=== PATIENT | male | born 1965 | race Caucasian/White ===

== ENCOUNTER 2017-06-10 14:37 | Inpatient (IN) | payer OTHER ==
[2017-06-10 18:47] VITALS: BMI 21.7
--- NOTE | 2017-06-10 21:00 | HP ---
CIWA Score - CIWA Score Nausea/Vomitin-Mild Nausea/No Vomiting Muscle Tremors: 2 Anxiety: 4-Mod. Anxious/Guarded Agitation: 4-Moderately Restless Paroxysmal Sweats: 2 Orientation: 0-Oriented Tacttile Disturbances: 0-None Auditory Disturbances: 0-None Visual Disturbances: 0-None Headache: 0-None Present CIWA-Ar Total Score: 13 Admission ROS S - HPI Chief Complaint: " I ma here for detox" Allergies/Adverse Reactions: Allergies Allergy/AdvReac Type Severity Reaction Status Date / Time hydromorphone [From Dilaudid] Allergy Verified 06/10/17 21:09 Penicillins AdvReac Verified 06/10/17 21:09 History of Present Illness: 51 yo male with hx of nicotine, alcohol and marijuana dependence is here is seeking detox. PMHX: RA, sciatica and herniated disc, anxiety, depression. Denies suicidal / homicidal ideation or suicide attempts in the past. Last detox 20 years ago., Longest period of sobriety three weeks. Denies hx of seizures, hx of blackouts last episode 4 months ago . Exam Limitations: No Limitations - Ebola screening Have you traveled outside of the country in the last 21 days: No Have you had contact with anyone from an Ebola affected area: No Have you been sick,other than usual withdrawal symptoms: No Do you have a fever: No - Review of Systems Constitutional: Chills, Changes in sleep EENT: reports: No Symptoms Reported Respiratory: reports: No Symptoms reported GI: reports: Nausea, Poor Fluid Intake, Abdominal cramping : reports: No Symptoms Reported Musculoskeletal: reports: Back Pain Integumentary: reports: No Symptoms Reported Neuro: reports: No Symptoms reported Endocrine: reports: No Symptoms Reported Hematology: reports: No Symptoms Reported Psychiatric: reports: Orientated x3, Anxious Other Systems: Reviewed and Negative Patient History - Patient Medical History Hx Anemia: No Hx Asthma: No Hx Chronic Obstructive Pulmonary Disease (COPD): No Hx Cancer: No Hx Cardiac Disorders: No Hx Congestive Heart Failure: No Hx Hypertension: No Hx Hypercholesterolemia: No Hx Pacemaker: No HX Cerebrovascular Accident: No Hx Seizures: No Hx Dementia: No Hx Diabetes: No (GERD ) Hx Liver Disease: No Hx Genitourinary Disorders: No Hx Sexually Transmitted Disorders: No Hx Renal Disease (ESRD): No Hx Thyroid Disease: No Hx Human Immunodeficiency Virus (HIV): No (Last tested 2016) Hx Hepatitis C: No Hx Depression: Yes Hx Suicide Attempt: No Hx Bipolar Disorder: No Hx Schizophrenia: No - Patient Surgical History Past Surgical History: Yes Hx Neurologic Surgery: No Hx Cataract Extraction: No Hx Cardiac Surgery: No Hx Lung Surgery: No Hx Breast Surgery: No Hx Breast Biopsy: No Hx Abdominal Surgery: Yes (abdominal hernia 26 years ago ) Hx Appendectomy: No Hx Cholecystectomy: No Hx Genitourinary Surgery: No Hx Orthopedic Surgery: Yes (skull fracture repair 1 year agho ) Hx Hysterectomy: No Anesthesia Reaction: No - PPD History Previous Implant?: No Documented Results: Negative w/o proof Implanted On Prior R Admission?: No PPD to be Administered?: Yes - Reproductive History Patient is a Female of Child Bearing Age (11 -55 yrs old): No - Smoking Cessation Smoking history: Current every day smoker Have you smoked in the past 12 months: Yes Aproximately how many cigarettes per day: 8 Hx Chewing Tobacco Use: No Initiated information on smoking cessation: Yes 'Breaking Loose' booklet given: 06/10/17 - Substance & Tx. History Hx Alcohol Use: Yes Hx Substance Use: Yes Substance Use Type: Alcohol, Marijuana Hx Substance Use Treatment: Yes ([facility] 20 years ago ) - Substances Abused Alcohol Route: Oral Frequency: Daily Amount used: 1 pint vodka Age of first use: 20 Date of Last Use: 06/10/17 Marijuana/Hashish Route: Smoking Frequency: 1-2 times per week Amount used: $5 Age of first use: 20 Date of Last Use: 06/06/17 Family Disease History - Family Disease History Family Disease History: Diabetes: Mother (alive, multiple myeloma, gout, HTN ), Other: Father (, Crack Overdose), Mother Admission Physical Exam S - Vital Signs Vital Signs: Vital Signs - 24 hr 06/10/17 18:45 Temperature 96.1 F L Pulse Rate 85 Respiratory 18 Rate Blood Pressure 121/80 - Physical General Appearance: Yes: Disheveled, Thin, Irritable, Anxious, Other (pacing) HEENTM: Yes: EOMI, Hearing grossly Normal, Normal ENT Inspection, Normocephalic , Normal Voice, Pharynx Normal, Tm's normal, Other (poor dentition, missint teeth) Respiratory: Yes: Chest Non-Tender, Lungs Clear, Normal Breath Sounds, No Respiratory Distress, No Accessory Muscle Use Neck: Yes: No masses,lesions,Nodules, Trachea in good position Breast: Yes: Breast Exam Deferred Cardiology: Yes: Regular Rhythm, Regular Rate Abdominal: Yes: Normal Bowel Sounds, Non Tender, Flat, Soft Back: Yes: Normal Inspection Musculoskeletal: Yes: full range of Motion, Gait Steady, Pelvis Stable, Back pain Extremities: Yes: Normal Capillary Refill, Normal Inspection, Normal Range of Motion, Non-Tender 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: 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 NML intact, Fully Oriented, Alert, Motor Strength 5/5, Depressed Affect Integumentary: Yes: Normal Color, Warm, Moist Lymphatic: Yes: Within Normal Limits - Diagnostic (1) Alcohol dependence with withdrawal Current Visit: Yes Status: Acute Qualifiers: Complication of substance-induced condition: uncomplicated Qualified Code(s ): F10.230 - Alcohol dependence with withdrawal, uncomplicated (2) Anxious mood Current Visit: Yes Status: Acute (3) Marijuana dependence Current Visit: Yes Status: Acute Cleared for Admission [facility] - Detox or Rehab [facility] Level of Care: Medically Managed Detox Regimen/Protocol: Librium [facility] Breath Alcohol Content Breath Alcohol Content: 0.245 Urine Drug Screen - Results Drug Screen Negative: No Urine Drug Screen Results: THC-Marijuana
[2017-06-10] MEDS ORDERED: chlordiazePOXIDE HCL 25 MG CAPSULE PO ONE (21:09)
[2017-06-10] MEDS ORDERED: chlordiazePOXIDE HCL 25 MG CAPSULE PO PRN (21:09)
[2017-06-10] MEDS ORDERED: guaiFENesin/D-METHORPHAN HB 10 ML UNIT-DOSE CUPS PO PRN (21:09)
[2017-06-10] MEDS ORDERED: ACETAMINOPHEN 325 MG TABLET (FP) PO PRN (21:09)
[2017-06-10] MEDS ORDERED: MENTHOL/PHENOL 1 EACH UD MM PRN (21:09)
[2017-06-10] MEDS ORDERED: MAGNESIUM CITRATE 300 ML BOTTLE PO PRN (21:09)
[2017-06-10] MEDS ORDERED: LOPERAMIDE HCL 2 MG CAPSULE PO PRN (21:09)
[2017-06-10] MEDS ORDERED: MAG HYDROX/AL HYDROX/SIMETH 30 ML UNIT-DOSE CUP PO PRN (21:09)
[2017-06-10] MEDS ORDERED: hydrOXYzine PAMOATE 50 MG CAPSULE (FP) PO PRN (21:09)
[2017-06-10] MEDS ORDERED: NICOTINE POLACRILEX 2 MG GUM BC PRN (21:09)
[2017-06-10] MEDS ORDERED: P-EPHED 60MG/TRIPROLIDI 2.5MG TABLET PO PRN (21:09)
[2017-06-10] MEDS ORDERED: MAGNESIUM HYDROX 2400MG/30ML ORAL SUSPENSION 30 ML CUP PO PRN (21:09)
[2017-06-10] MEDS ORDERED: MELATONIN 5 MG TABLETS PO PRN (22:00)
[2017-06-10] MEDS: chlordiazePOXIDE HCL 25 MG CAPSULE PO SCH (23:05)
[2017-06-10] MEDS: THIAMINE HCL 100 MG TABLET (FP) PO SCH (23:05)
[2017-06-11 00:31] LABS: URINE APPEARANCE CLEAR; URINE BILIRUBIN NEGATIVE (<2.0 mg/dL); URINE COLOR LTYELLOW; URINE GLUCOSE (UA) NEGATIVE (NEGATIVE); URINE KETONE NEGATIVE (NEGATIVE); URINE LEUK ESTERASE NEGATIVE (NEGATIVE); URINE NITRITE NEGATIVE (NEGATIVE); URINE PROTEIN NEGATIVE (NEGATIVE)
[2017-06-11] MEDS: chlordiazePOXIDE HCL 25 MG CAPSULE PO SCH ×4 (05:20→22:13)
[2017-06-11] MEDS: IBUPROFEN 400 MG TABLET (FP) PO PRN (06:01)
[2017-06-11 10:14] LABS: HEMATOCRIT 40.4 % (35.4-49); HEMOGLOBIN 13.8 GM/dL (11.7-16.9); MCHC 34.1 g/dl (32.0-35.9); MEAN CELL VOLUME 96.9 fl (80-96); MEAN PLT VOLUME 8.2 fl (7.5-11.1); PLATELET COUNT 281 K/MM3 (134-434); RBC 4.17 M/mm3 (4.00-5.60); RDW 15.1 % (11.9-15.9); WHITE BLOOD COUNT 4.7 K/mm3 (4.0-10.0)
[2017-06-11 10:25] LABS: ALBUMIN 3.6 g/dl (3.4-5.0); ANION GAP 6 (8-16); CALCIUM 8.7 mg/dL (8.5-10.1); CHLORIDE 106 mmol/L (98-107); CO2 30 mmol/L (21-32); POTASSIUM 4.4 mmol/L (3.5-5.1); SODIUM 142 mmol/L (136-145)
[2017-06-11 10:30] LABS: ALK PHOS 114 U/L (45-117); BILIRUBIN,TOTAL 0.4 mg/dL (0.2-1.0); BLOOD UREA NITROGEN 12 mg/dL (7-18); CREATININE 0.9 mg/dL (0.7-1.3); GLUCOSE,RANDOM 87 mg/dL (74-106); SGOT/AST 43 U/L (15-37); SGPT/ALT 24 U/L (12-78); TOT PROT 7.1 g/dl (6.4-8.2)
[2017-06-11] MEDS: PRENATAL VITAMINS W/ FOLIC ACID TABLET (FP) PO SCH (10:30)
[2017-06-11] MEDS: NICOTINE 14 MG/24 HOURS TOPICAL PATCH TD SCH (10:30)
[2017-06-11] MEDS ORDERED: PNEUMOCOCCAL 23 VACCINE 0.5 ML VIAL IM ONE (12:00)
[2017-06-11] MEDS ORDERED: FLU VACCINE QUAD 60 MCG/0.5 ML (MDV 17-18) IM ONE (12:00)
[2017-06-11] MEDS ORDERED: PNEUMOC 13-VAL CONJ-DIP CRM/PF 0.5 ML DISP.SYRIN IM ONE (12:00)
[2017-06-11 12:16] LABS: RPR REACTIVE 1:4 (NONREACTIVE)
--- NOTE | 2017-06-11 13:13 | PN ---
[facility] CIWA - CIWA Score Nausea/Vomitin-No Nausea/No Vomiting Muscle Tremors: 4-Moderate,w/Arms Extend Anxiety: 4-Mod. Anxious/Guarded Agitation: 4-Moderately Restless Paroxysmal Sweats: 1-Minimal Palms Moist Orientation: 0-Oriented Tacttile Disturbances: 3-Moderate Itch/Numb/Burn Auditory Disturbances: 0-None Visual Disturbances: 0-None Headache: 0-None Present CIWA-Ar Total Score: 16 BHS Progress Note (SOAP) Subjective: ANXIETY,SWEATS,TREMORS,FATIGUE. Objective: 06/11/17 13:12 Vital Signs Temperature 96.0 F L 06/11/17 09:10 Pulse Rate 75 06/11/17 12:30 Respiratory Rate 18 06/11/17 12:30 Blood Pressure 120/79 06/11/17 09:10 O2 Sat by Pulse Oximetry (%) Laboratory Last Values WBC 4.7 K/mm3 (4.0-10.0) 06/11/17 08:30 RBC 4.17 M/mm3 (4.00-5.60) 06/11/17 08:30 Hgb 13.8 GM/dL (11.7-16.9) 06/11/17 08:30 Hct 40.4 % (35.4-49) 06/11/17 08:30 MCV 96.9 fl (80-96) H 06/11/17 08:30 MCH 33.0 pg (25.7-33.7) 06/11/17 08:30 MCHC 34.1 g/dl (32.0-35.9) 06/11/17 08:30 RDW 15.1 % (11.9-15.9) 06/11/17 08:30 Plt Count 281 K/MM3 (134-434) 06/11/17 08:30 MPV 8.2 fl (7.5-11.1) 06/11/17 08:30 Sodium 142 mmol/L (136-145) 06/11/17 08:30 Potassium 4.4 mmol/L (3.5-5.1) 06/11/17 08:30 Chloride 106 mmol/L (98-107) 06/11/17 08:30 Carbon Dioxide 30 mmol/L (21-32) 06/11/17 08:30 Anion Gap 6 (8-16) L 06/11/17 08:30 BUN 12 mg/dL (7-18) 06/11/17 08:30 Creatinine 0.9 mg/dL (0.7-1.3) 06/11/17 08:30 Creat Clearance w eGFR > 60 (>60) 06/11/17 08:30 Random Glucose 87 mg/dL (74-106) 06/11/17 08:30 Calcium 8.7 mg/dL (8.5-10.1) 06/11/17 08:30 Total Bilirubin 0.4 mg/dL (0.2-1.0) 06/11/17 08:30 AST 43 U/L (15-37) H 06/11/17 08:30 ALT 24 U/L (12-78) 06/11/17 08:30 Alkaline Phosphatase 114 U/L (45-117) 06/11/17 08:30 Total Protein 7.1 g/dl (6.4-8.2) 06/11/17 08:30 Albumin 3.6 g/dl (3.4-5.0) 06/11/17 08:30 Urine Color Ltyellow 06/10/17 00:00 Urine Appearance Clear 06/10/17 00:00 Urine pH 6.0 (5.0-8.0) 06/10/17 00:00 Ur Specific [place] 1.009 (1.001-1.035) 06/10/17 00:00 Urine Protein Negative (NEGATIVE) 06/10/17 00:00 Urine Glucose (UA) Negative (NEGATIVE) 06/10/17 00:00 Urine Ketones Negative (NEGATIVE) 06/10/17 00:00 Urine Blood Negative (NEGATIVE) 06/10/17 00:00 Urine Nitrite Negative (NEGATIVE) 06/10/17 00:00 Urine Bilirubin Negative (<2.0 mg/dL) 06/10/17 00:00 Urine Urobilinogen 2.0 mg/dL (0.2-1.0) 06/10/17 00:00 Ur Leukocyte Esterase Negative (NEGATIVE) 06/10/17 00:00 RPR Titer Reactive 1:4 (NONREACTIVE) H 06/11/17 08:30 HIV 1&2 Antibody Screen Negative 06/11/17 08:30 HIV P24 Antigen Negative 06/11/17 08:30 MHA PENDING Assessment: 06/11/17 13:13 WITHDRAWAL SX Plan: CONTINUE DETOX
[2017-06-11 15:16] LABS: TREPONEMA ANTIBODY REACTIVE (NONREACTIVE)
--- NOTE | 2017-06-11 15:42 | CONSULT ---
[facility] Psychiatric Consult - Data Date of interview: 06/11/17 Admission source: [facility] Identifying data: First admission to [facility] for this 51 y/o - Citizen Of [place] male seeking detox treatment on for alcohol and cannabis dependence.Patient is single,a father of five,domiciled and reportedly self- employed. Substance Abuse History: Confirmed by patient in this session.Details in current [facility] report as follows : Smoking history: Current every day smoker. Have you smoked in the past 12 months: Yes. Aproximately how many cigarettes per day: 8. Hx Chewing Tobacco Use: No. Initiated information on smoking cessation: Yes. 'Breaking Loose' booklet given: 06/10/17. - Substance & Tx. History. Hx Alcohol Use: Yes. Hx Substance Use: Yes. Substance Use Type: Alcohol, Marijuana. Hx Substance Use Treatment: Yes ([facility] Geoffrey 20 years ago ) . - Substances Abused. Alcohol. Route: Oral. Frequency: Daily. Amount used: 1 pint vodka. Age of first use: 20. Date of Last Use: 06/10/17. Marijuana/Hashish. Route: Smoking. Frequency: 1-2 times per week. Amount used : $5. Age of first use: 20. Date of Last Use: 06/06/17 Medical History: GERD,herniated discs (lumbar spine),sciatica (right leg), rheumatoid arthritis,recent history of fracture of skull (surgery) an a distant antecedent of abdominal herniorraphy. Psychiatric History: Patient admits to a history of one psychiatric hospitalization at a facility in [facility] (2013).Name of institution not recalled.Mr Hernandez indicates that he was diagniosed with MDD and Anxiety Disorder.At the time, he was prescribed remeron and sertraline.Last taken in 2013.Patient declares that he dropped out of OPD care promptly after discharge from the hospital.Has been lost to follow up for several years.Patient denies history of sucide attempts. Physical/Sexual Abuse/Trauma History: Patient denies. Additional Comment: Urine Drug Screen Results: THC-Marijuana.Noted. Mental Status Exam - Mental Status Exam Alert and Oriented to: Time, Place, Person Cognitive Function: Good Patient Appearance: Well Groomed Mood: Nervous, Withdrawn Affect: Normal Range Patient Behavior: Fatigued, Appropriate, Cooperative Speech Pattern: Clear Voice Loudness: Normal Thought Process: Intact, Goal Oriented Thought Disorder: Not Present Hallucinations: Denies Suicidal Ideation: Denies Homicidal Ideation: Denies Insight/Judgement: Poor Sleep: Poorly, Difficulty falling asleep Appetite: Good Muscle strength/Tone: Normal Gait/Station: Normal Psychiatric Findings - Problem List ([place] 1, 2,3) (1) Alcohol dependence with withdrawal Current Visit: Yes Status: Acute Qualifiers: Complication of substance-induced condition: uncomplicated Qualified Code(s ): F10.230 - Alcohol dependence with withdrawal, uncomplicated (2) Marijuana dependence Current Visit: Yes Status: Acute (3) Nicotine dependence Current Visit: Yes Status: Acute Qualifiers: Nicotine product type: cigarettes Substance use status: in withdrawal Qualified Code(s): F17.213 - Nicotine dependence, cigarettes, with withdrawal (4) Substance induced mood disorder Current Visit: Yes Status: Acute (5) Insomnia Current Visit: Yes Status: Acute - Initial Treatment Plan Initial Treatment Plan: Psychoeducation.Sleep hygiene.Detoxification in progress.Medication : remeron 15 mg po hs.Side effects/benefits discussed with the patient.Will not restart sertraline at this time.Patient is in agreement with this plan of care.Observation.
--- NOTE | 2017-06-11 16:58 | EKG ---
Test Reason : Blood Pressure : / mmHG Vent. Rate : 070 BPM Atrial Rate : 070 BPM P-R Int : 142 ms QRS Dur : 102 ms QT Int : 406 ms P-R-T Axes : 086 055 021 degrees QTc Int : 438 ms NORMAL SINUS RHYTHM NORMAL ECG NO PREVIOUS ECGS AVAILABLE Confirmed by MD Ella, Onel ([id number]) on 06/11/2017 4:58:20 PM Referred By: Confirmed By:Onel Jaramillo MD
[2017-06-11] MEDS: DOXYCYCLINE HYCLATE 100 MG TABLET PO SCH (17:46)
[2017-06-11] MEDS: MIRTAZAPINE 15 MG TABLET (FP) PO SCH (22:13)
[2017-06-11] MEDS: THIAMINE HCL 100 MG TABLET (FP) PO SCH (22:13)
[2017-06-12] MEDS: chlordiazePOXIDE HCL 25 MG CAPSULE PO SCH ×3 (05:42→18:14)
[2017-06-12] MEDS: PRENATAL VITAMINS W/ FOLIC ACID TABLET (FP) PO SCH (10:35)
[2017-06-12] MEDS: NICOTINE 14 MG/24 HOURS TOPICAL PATCH TD SCH (10:35)
[2017-06-12] MEDS: DOXYCYCLINE HYCLATE 100 MG TABLET PO SCH ×2 (10:35→18:14)
--- NOTE | 2017-06-12 12:53 | PN ---
[facility] CIWA - CIWA Score Nausea/Vomitin-No Nausea/No Vomiting Muscle Tremors: 4-Moderate,w/Arms Extend Anxiety: 4-Mod. Anxious/Guarded Agitation: 4-Moderately Restless Paroxysmal Sweats: 1-Minimal Palms Moist Orientation: 0-Oriented Tacttile Disturbances: 0-None Auditory Disturbances: 0-None Visual Disturbances: 0-None Headache: 0-None Present CIWA-Ar Total Score: 13 S Progress Note (SOAP) Subjective: ANXIETY, SWEATS,HEADACHE,FATIGUE. Objective: 06/12/17 13:11 Vital Signs Temperature 96.1 F L 06/12/17 11:15 Pulse Rate 78 06/12/17 11:15 Respiratory Rate 20 06/12/17 11:15 Blood Pressure 132/89 06/12/17 11:15 O2 Sat by Pulse Oximetry (%) Laboratory Last Values WBC 4.7 K/mm3 (4.0-10.0) 06/11/17 08:30 RBC 4.17 M/mm3 (4.00-5.60) 06/11/17 08:30 Hgb 13.8 GM/dL (11.7-16.9) 06/11/17 08:30 Hct 40.4 % (35.4-49) 06/11/17 08:30 MCV 96.9 fl (80-96) H 06/11/17 08:30 MCH 33.0 pg (25.7-33.7) 06/11/17 08:30 MCHC 34.1 g/dl (32.0-35.9) 06/11/17 08:30 RDW 15.1 % (11.9-15.9) 06/11/17 08:30 Plt Count 281 K/MM3 (134-434) 06/11/17 08:30 MPV 8.2 fl (7.5-11.1) 06/11/17 08:30 Sodium 142 mmol/L (136-145) 06/11/17 08:30 Potassium 4.4 mmol/L (3.5-5.1) 06/11/17 08:30 Chloride 106 mmol/L (98-107) 06/11/17 08:30 Carbon Dioxide 30 mmol/L (21-32) 06/11/17 08:30 Anion Gap 6 (8-16) L 06/11/17 08:30 BUN 12 mg/dL (7-18) 06/11/17 08:30 Creatinine 0.9 mg/dL (0.7-1.3) 06/11/17 08:30 Creat Clearance w eGFR > 60 (>60) 06/11/17 08:30 Random Glucose 87 mg/dL (74-106) 06/11/17 08:30 Calcium 8.7 mg/dL (8.5-10.1) 06/11/17 08:30 Total Bilirubin 0.4 mg/dL (0.2-1.0) 06/11/17 08:30 AST 43 U/L (15-37) H 06/11/17 08:30 ALT 24 U/L (12-78) 06/11/17 08:30 Alkaline Phosphatase 114 U/L (45-117) 06/11/17 08:30 Total Protein 7.1 g/dl (6.4-8.2) 06/11/17 08:30 Albumin 3.6 g/dl (3.4-5.0) 06/11/17 08:30 Urine Color Ltyellow 06/10/17 00:00 Urine Appearance Clear 06/10/17 00:00 Urine pH 6.0 (5.0-8.0) 06/10/17 00:00 Ur Specific [place] 1.009 (1.001-1.035) 06/10/17 00:00 Urine Protein Negative (NEGATIVE) 06/10/17 00:00 Urine Glucose (UA) Negative (NEGATIVE) 06/10/17 00:00 Urine Ketones Negative (NEGATIVE) 06/10/17 00:00 Urine Blood Negative (NEGATIVE) 06/10/17 00:00 Urine Nitrite Negative (NEGATIVE) 06/10/17 00:00 Urine Bilirubin Negative (<2.0 mg/dL) 06/10/17 00:00 Urine Urobilinogen 2.0 mg/dL (0.2-1.0) 06/10/17 00:00 Ur Leukocyte Esterase Negative (NEGATIVE) 06/10/17 00:00 RPR Titer Reactive 1:4 (NONREACTIVE) H 06/11/17 08:30 T.pallidum Ab (MHA) Reactive (NONREACTIVE) 06/11/17 08:30 HIV 1&2 Antibody Screen Negative 06/11/17 08:30 HIV P24 Antigen Negative 06/11/17 08:30 RPR NOTED. PT DENIES PREVIOUS TREATMENT OR REACTIVITY. ALLERGY TO PCN. DOXYCYCLINE STARTED Assessment: 06/12/17 13:14 WITHDRAWAL SX Plan: CONTINUE DETOX
[2017-06-12] MEDS: chlordiazePOXIDE 5 MG CAPSULE PO SCH (22:19)
[2017-06-12] MEDS: THIAMINE HCL 100 MG TABLET (FP) PO SCH (22:19)
[2017-06-12] MEDS: MIRTAZAPINE 15 MG TABLET (FP) PO SCH (22:19)
[2017-06-12] MEDS: IBUPROFEN 400 MG TABLET (FP) PO PRN (22:20)
[2017-06-13] MEDS: chlordiazePOXIDE 5 MG CAPSULE PO SCH ×3 (05:40→18:02)
[2017-06-13] MEDS: DOXYCYCLINE HYCLATE 100 MG TABLET PO SCH ×2 (10:30→18:02)
[2017-06-13] MEDS: PRENATAL VITAMINS W/ FOLIC ACID TABLET (FP) PO SCH (10:30)
[2017-06-13] MEDS: NICOTINE 14 MG/24 HOURS TOPICAL PATCH TD SCH (10:30)
--- NOTE | 2017-06-13 11:23 | PN ---
[facility] Progress Note (SOAP) Subjective: ANXIETY,SWEATS,BODY ACHE. Objective: 06/13/17 11:19 Vital Signs Temperature 96.8 F L 06/13/17 09:13 Pulse Rate 70 06/13/17 09:13 Respiratory Rate 18 06/13/17 09:13 Blood Pressure 112/66 06/13/17 09:13 O2 Sat by Pulse Oximetry (%) Laboratory Last Values WBC 4.7 K/mm3 (4.0-10.0) 06/11/17 08:30 RBC 4.17 M/mm3 (4.00-5.60) 06/11/17 08:30 Hgb 13.8 GM/dL (11.7-16.9) 06/11/17 08:30 Hct 40.4 % (35.4-49) 06/11/17 08:30 MCV 96.9 fl (80-96) H 06/11/17 08:30 MCH 33.0 pg (25.7-33.7) 06/11/17 08:30 MCHC 34.1 g/dl (32.0-35.9) 06/11/17 08:30 RDW 15.1 % (11.9-15.9) 06/11/17 08:30 Plt Count 281 K/MM3 (134-434) 06/11/17 08:30 MPV 8.2 fl (7.5-11.1) 06/11/17 08:30 Sodium 142 mmol/L (136-145) 06/11/17 08:30 Potassium 4.4 mmol/L (3.5-5.1) 06/11/17 08:30 Chloride 106 mmol/L (98-107) 06/11/17 08:30 Carbon Dioxide 30 mmol/L (21-32) 06/11/17 08:30 Anion Gap 6 (8-16) L 06/11/17 08:30 BUN 12 mg/dL (7-18) 06/11/17 08:30 Creatinine 0.9 mg/dL (0.7-1.3) 06/11/17 08:30 Creat Clearance w eGFR > 60 (>60) 06/11/17 08:30 Random Glucose 87 mg/dL (74-106) 06/11/17 08:30 Calcium 8.7 mg/dL (8.5-10.1) 06/11/17 08:30 Total Bilirubin 0.4 mg/dL (0.2-1.0) 06/11/17 08:30 AST 43 U/L (15-37) H 06/11/17 08:30 ALT 24 U/L (12-78) 06/11/17 08:30 Alkaline Phosphatase 114 U/L (45-117) 06/11/17 08:30 Total Protein 7.1 g/dl (6.4-8.2) 06/11/17 08:30 Albumin 3.6 g/dl (3.4-5.0) 06/11/17 08:30 Urine Color Ltyellow 06/10/17 00:00 Urine Appearance Clear 06/10/17 00:00 Urine pH 6.0 (5.0-8.0) 06/10/17 00:00 Ur Specific [place] 1.009 (1.001-1.035) 06/10/17 00:00 Urine Protein Negative (NEGATIVE) 06/10/17 00:00 Urine Glucose (UA) Negative (NEGATIVE) 06/10/17 00:00 Urine Ketones Negative (NEGATIVE) 06/10/17 00:00 Urine Blood Negative (NEGATIVE) 06/10/17 00:00 Urine Nitrite Negative (NEGATIVE) 06/10/17 00:00 Urine Bilirubin Negative (<2.0 mg/dL) 06/10/17 00:00 Urine Urobilinogen 2.0 mg/dL (0.2-1.0) 06/10/17 00:00 Ur Leukocyte Esterase Negative (NEGATIVE) 06/10/17 00:00 RPR Titer Reactive 1:4 (NONREACTIVE) H 06/11/17 08:30 T.pallidum Ab (MHA) Reactive (NONREACTIVE) 06/11/17 08:30 HIV 1&2 Antibody Screen Negative 06/11/17 08:30 HIV P24 Antigen Negative 06/11/17 08:30 Assessment: 06/13/17 11:20 WITHDRAWAL SX Plan: CONTINUE DETOX
[2017-06-13] MEDS: MIRTAZAPINE 15 MG TABLET (FP) PO SCH (22:17)
[2017-06-13] MEDS: chlordiazePOXIDE HCL 10 MG CAPSULE PO SCH (22:17)
[2017-06-13] MEDS: THIAMINE HCL 100 MG TABLET (FP) PO SCH (22:17)
[2017-06-14] MEDS: chlordiazePOXIDE HCL 10 MG CAPSULE PO SCH (05:10)
--- NOTE | 2017-06-14 09:28 | DS ---
[facility] Detox Discharge Summary Admission Date: 06/10/17 Discharge Date: 06/14/17 - History Present History: Alcohol Dependence, Cannabis Dependence Additional Comments: DETOX COMPLETED. ALERT O X 3. NAD. Pertinent Past History: PLEASE SEE DX BELOW - Physical Exam Results Vital Signs: Vital Signs Temperature 97.9 F 06/14/17 06:33 Pulse Rate 87 06/14/17 06:33 Respiratory Rate 18 06/14/17 06:33 Blood Pressure 137/95 06/14/17 06:33 O2 Sat by Pulse Oximetry (%) Pertinent Admission Physical Exam Findings: WITHDRAWAL SX Laboratory Last Values WBC 4.7 K/mm3 (4.0-10.0) 06/11/17 08:30 RBC 4.17 M/mm3 (4.00-5.60) 06/11/17 08:30 Hgb 13.8 GM/dL (11.7-16.9) 06/11/17 08:30 Hct 40.4 % (35.4-49) 06/11/17 08:30 MCV 96.9 fl (80-96) H 06/11/17 08:30 MCH 33.0 pg (25.7-33.7) 06/11/17 08:30 MCHC 34.1 g/dl (32.0-35.9) 06/11/17 08:30 RDW 15.1 % (11.9-15.9) 06/11/17 08:30 Plt Count 281 K/MM3 (134-434) 06/11/17 08:30 MPV 8.2 fl (7.5-11.1) 06/11/17 08:30 Sodium 142 mmol/L (136-145) 06/11/17 08:30 Potassium 4.4 mmol/L (3.5-5.1) 06/11/17 08:30 Chloride 106 mmol/L (98-107) 06/11/17 08:30 Carbon Dioxide 30 mmol/L (21-32) 06/11/17 08:30 Anion Gap 6 (8-16) L 06/11/17 08:30 BUN 12 mg/dL (7-18) 06/11/17 08:30 Creatinine 0.9 mg/dL (0.7-1.3) 06/11/17 08:30 Creat Clearance w eGFR > 60 (>60) 06/11/17 08:30 Random Glucose 87 mg/dL (74-106) 06/11/17 08:30 Calcium 8.7 mg/dL (8.5-10.1) 06/11/17 08:30 Total Bilirubin 0.4 mg/dL (0.2-1.0) 06/11/17 08:30 AST 43 U/L (15-37) H 06/11/17 08:30 ALT 24 U/L (12-78) 06/11/17 08:30 Alkaline Phosphatase 114 U/L (45-117) 06/11/17 08:30 Total Protein 7.1 g/dl (6.4-8.2) 06/11/17 08:30 Albumin 3.6 g/dl (3.4-5.0) 06/11/17 08:30 Urine Color Ltyellow 06/10/17 00:00 Urine Appearance Clear 06/10/17 00:00 Urine pH 6.0 (5.0-8.0) 06/10/17 00:00 Ur Specific [place] 1.009 (1.001-1.035) 06/10/17 00:00 Urine Protein Negative (NEGATIVE) 06/10/17 00:00 Urine Glucose (UA) Negative (NEGATIVE) 06/10/17 00:00 Urine Ketones Negative (NEGATIVE) 06/10/17 00:00 Urine Blood Negative (NEGATIVE) 06/10/17 00:00 Urine Nitrite Negative (NEGATIVE) 06/10/17 00:00 Urine Bilirubin Negative (<2.0 mg/dL) 06/10/17 00:00 Urine Urobilinogen 2.0 mg/dL (0.2-1.0) 06/10/17 00:00 Ur Leukocyte Esterase Negative (NEGATIVE) 06/10/17 00:00 RPR Titer Reactive 1:4 (NONREACTIVE) H 06/11/17 08:30 T.pallidum Ab (MHA) Reactive (NONREACTIVE) 06/11/17 08:30 HIV 1&2 Antibody Screen Negative 06/11/17 08:30 HIV P24 Antigen Negative 06/11/17 08:30 - Treatment Hospital Course: Detox Protocol Followed, Detoxed Safely, Responded well, Discharged Condition Good, Rehab Referral Accepted Patient has Accepted a Rehab Referral to: [facility] - Medication Discharge Medications: Ambulatory Orders Mirtazapine [Remeron -] 25 mg PO DAILY 06/10/17 Naproxen [Naprosyn] 500 mg PO BID 06/10/17 Sertraline HCl [Zoloft] 75 mg PO HS 06/10/17 Mirtazapine [Remeron -] 15 mg PO HS #30 tablet 06/12/17 Doxycycline Hyclate [Vibratab -] 100 mg PO BID@1000,1800 #13 tablet 06/14/17 - Diagnosis (1) Alcohol dependence with withdrawal Current Visit: Yes Status: Acute Qualifiers: Complication of substance-induced condition: uncomplicated Qualified Code(s ): F10.230 - Alcohol dependence with withdrawal, uncomplicated (2) Marijuana dependence Current Visit: Yes Status: Acute (3) Nicotine dependence Current Visit: Yes Status: Acute Qualifiers: Nicotine product type: cigarettes Substance use status: in withdrawal Qualified Code(s): F17.213 - Nicotine dependence, cigarettes, with withdrawal (4) Positive serological reaction for syphilis Current Visit: Yes Status: Acute - AMA Did Patient Leave Against Medical Advice: No
[2017-06-14] MEDS: DOXYCYCLINE HYCLATE 100 MG TABLET PO SCH (09:30)
[2017-06-14] MEDS: PRENATAL VITAMINS W/ FOLIC ACID TABLET (FP) PO SCH (09:30)
[2017-06-14] MEDS: NICOTINE 14 MG/24 HOURS TOPICAL PATCH TD SCH (09:33)
[2017-06-14 09:38] VITALS: BP 124/81; PULSE 79; TEMP 96.6
--- NOTE | 2017-06-14 11:40 | PN ---
S Progress Note (SOAP) Subjective: DETOX COMPLETED. ALERT O X 3. NAD. PT INSTRUCTED TO COMPLETE DOSE OF DOXYCYCLINE FOR REACTIVE RPR(SYPHILIS INFECTION). TO FOLLOW UP WITH PCP AT [facility]. Objective: 06/14/17 11:38 Vital Signs Temperature 96.6 F L 06/14/17 09:37 Pulse Rate 79 06/14/17 09:37 Respiratory Rate 20 06/14/17 09:37 Blood Pressure 124/81 06/14/17 09:37 O2 Sat by Pulse Oximetry (%) Laboratory Last Values WBC 4.7 K/mm3 (4.0-10.0) 06/11/17 08:30 RBC 4.17 M/mm3 (4.00-5.60) 06/11/17 08:30 Hgb 13.8 GM/dL (11.7-16.9) 06/11/17 08:30 Hct 40.4 % (35.4-49) 06/11/17 08:30 MCV 96.9 fl (80-96) H 06/11/17 08:30 MCH 33.0 pg (25.7-33.7) 06/11/17 08:30 MCHC 34.1 g/dl (32.0-35.9) 06/11/17 08:30 RDW 15.1 % (11.9-15.9) 06/11/17 08:30 Plt Count 281 K/MM3 (134-434) 06/11/17 08:30 MPV 8.2 fl (7.5-11.1) 06/11/17 08:30 Sodium 142 mmol/L (136-145) 06/11/17 08:30 Potassium 4.4 mmol/L (3.5-5.1) 06/11/17 08:30 Chloride 106 mmol/L (98-107) 06/11/17 08:30 Carbon Dioxide 30 mmol/L (21-32) 06/11/17 08:30 Anion Gap 6 (8-16) L 06/11/17 08:30 BUN 12 mg/dL (7-18) 06/11/17 08:30 Creatinine 0.9 mg/dL (0.7-1.3) 06/11/17 08:30 Creat Clearance w eGFR > 60 (>60) 06/11/17 08:30 Random Glucose 87 mg/dL (74-106) 06/11/17 08:30 Calcium 8.7 mg/dL (8.5-10.1) 06/11/17 08:30 Total Bilirubin 0.4 mg/dL (0.2-1.0) 06/11/17 08:30 AST 43 U/L (15-37) H 06/11/17 08:30 ALT 24 U/L (12-78) 06/11/17 08:30 Alkaline Phosphatase 114 U/L (45-117) 06/11/17 08:30 Total Protein 7.1 g/dl (6.4-8.2) 06/11/17 08:30 Albumin 3.6 g/dl (3.4-5.0) 06/11/17 08:30 Urine Color Ltyellow 06/10/17 00:00 Urine Appearance Clear 06/10/17 00:00 Urine pH 6.0 (5.0-8.0) 06/10/17 00:00 Ur Specific [place] 1.009 (1.001-1.035) 06/10/17 00:00 Urine Protein Negative (NEGATIVE) 06/10/17 00:00 Urine Glucose (UA) Negative (NEGATIVE) 06/10/17 00:00 Urine Ketones Negative (NEGATIVE) 06/10/17 00:00 Urine Blood Negative (NEGATIVE) 06/10/17 00:00 Urine Nitrite Negative (NEGATIVE) 06/10/17 00:00 Urine Bilirubin Negative (<2.0 mg/dL) 06/10/17 00:00 Urine Urobilinogen 2.0 mg/dL (0.2-1.0) 06/10/17 00:00 Ur Leukocyte Esterase Negative (NEGATIVE) 06/10/17 00:00 RPR Titer Reactive 1:4 (NONREACTIVE) H 06/11/17 08:30 T.pallidum Ab ([facility]) Reactive (NONREACTIVE) 06/11/17 08:30 HIV 1&2 Antibody Screen Negative 06/11/17 08:30 HIV P24 Antigen Negative 06/11/17 08:30 Assessment: 06/14/17 11:38 MEDICALLY STABLE Plan: D/C PT TODAY RX FOR DOXYCYCLINE 100 MG PO BID #13 TABS SENT TO [facility] FOR FOOD SERVICE [employer] ON DISCHARGE.
== END 2017-06-14 09:47 | disposition home or self-care (01) | DRG 775 ==
LOC: YASAS 14:37 → Y3N 20:27
PROVIDERS: ADMIT Internal Medicine; ATTEND Internal Medicine
PROC: HZ2ZZZZ Detoxification Services for Substance Abuse Treatment (ICD-10-PCS; principal; 2017-06-10)
DX: F10.230 Alcohol dependence with withdrawal, uncomplicated (principal); F12.20 Cannabis dependence, uncomplicated; F19.24 Other psychoactive substance dependence with psychoactive substance-induced mood disorder; F41.9 Anxiety disorder, unspecified; G47.00 Insomnia, unspecified; A53.0 Latent syphilis, unspecified as early or late; F17.213 Nicotine dependence, cigarettes, with withdrawal
CPT/HCPCS: 36415; 80053; 81003; 85027; 86593; 86780; 87389; 90688; 90732; 93005; 93010; G0008; G0009

== ENCOUNTER 2018-05-09 12:01 | Inpatient (IN) | payer OTHER ==
[2018-05-09 13:24] VITALS: BMI 23.0
--- NOTE | 2018-05-09 14:20 | HP ---
CIWA Score Nausea/Vomitin-No Nausea/No Vomiting Muscle Tremors: None Anxiety: 4-Mod. Anxious/Guarded Agitation: 4-Moderately Restless Paroxysmal Sweats: 2 Orientation: 0-Oriented Tacttile Disturbances: 0-None Auditory Disturbances: 0-None Visual Disturbances: 0-None Headache: 2-Mild CIWA-Ar Total Score: 12 - Admission Criteria [facility] Guidelines: Admission for Medically Managed Detox: Requires at least one of the followin. CIWA greater than 12 2. Seizures within the past 24 hours 3. Delirium tremens within the past 24 hours 4. Hallucinations within the past 24 hours 5. Acute intervention needed for co occurring medical disorder 6. Acute intervention needed for co occurring psychiatric disorder 7. Severe withdrawal that cannot be handled at a lower level of care (continued vomiting, continued diarrhea, abnormal vital signs) requiring intravenous medication and/or fluids 8. Admission ROS [facility] - [facility] Chief Complaint: ETOH WITHDRAWAL SX Allergies/Adverse Reactions: Allergies Allergy/AdvReac Type Severity Reaction Status Date / Time hydromorphone [From Dilaudid] Allergy Verified 05/09/18 14:06 Penicillins AdvReac Verified 05/09/18 14:06 vegetables Allergy Intermediate Hives Uncoded 05/09/18 14:06 History of Present Illness: PATIENT PRESENTS WITH ETOH WITHDRAWAL SX. KNOWN TO FACILITY DUE TO PREVIOUS ADMISSION. LAST DETOX ADMISSION HERE AT [facility] 05/2017. LAST DETOX ADMISSION AT [facility] THREE MONTHS AGO. PATIENT STARTED DRINKING HEAVILY IN 1985, DRINKS 2 PINTS OF LIQUOR DAILY, LAST DRINK DRINK THIS MORNING. JONATHAN 0.222. PATIENT DENIES HX OF SEIZURES, DTS AND BLACK OUTS. +EYE PIPE FITTER GAS PIPE TO STEADY NERVES. PATIENT ALSO SMOKES MARIJUANA 1-2 X PER WEEK. LAST TIME HE SMOKED WAS 5 DAYS. PMHD INCLUDES ANXIETY AND DEPRESSION. PATIENT DENIES LEGAL ISSUES. DOES NOT HAVE STEADY RESIDENCE. DENIES SI/HI AND SUICIDE ATTEMPTS. Exam Limitations: Intoxication - Ebola screening Have you traveled outside of the country in the last 21 days: No Have you had contact with anyone from an Ebola affected area: No Have you been sick,other than usual withdrawal symptoms: No Do you have a fever: No - Review of Systems Constitutional: Night Sweats, Changes in sleep, Unexplained wgt Loss EENT: reports: No Symptoms Reported Respiratory: reports: No Symptoms reported Cardiac: reports: No Symptoms Reported GI: reports: Poor Appetite, Poor Fluid Intake : reports: No Symptoms Reported Musculoskeletal: reports: Back Pain, Joint Pain, Muscle Pain Integumentary: reports: No Symptoms Reported Neuro: reports: Headache Endocrine: reports: Unexplained Weight Loss Hematology: reports: No Symptoms Reported Psychiatric: reports: Orientated x3, Anxious, Depressed Patient History - Patient Medical History Hx Anemia: No Hx Asthma: No Hx Chronic Obstructive Pulmonary Disease (COPD): No Hx Cancer: No Hx Cardiac Disorders: No Hx Congestive Heart Failure: No Hx Hypertension: No Hx Hypercholesterolemia: No Hx Pacemaker: No HX Cerebrovascular Accident: No Hx Seizures: No Hx Dementia: No Hx Diabetes: No Hx Gastrointestinal Disorders: No Hx Liver Disease: No Hx Genitourinary Disorders: No Hx Sexually Transmitted Disorders: No Hx Renal Disease (ESRD): No Hx Thyroid Disease: No Hx Human Immunodeficiency Virus (HIV): No (Last tested 2016) Hx Hepatitis C: No Hx Depression: Yes Hx Suicide Attempt: No Hx Bipolar Disorder: No Hx Schizophrenia: No - Patient Surgical History Past Surgical History: Yes Hx Neurologic Surgery: No Hx Cataract Extraction: No Hx Cardiac Surgery: No Hx Lung Surgery: No Hx Breast Surgery: No Hx Breast Biopsy: No Hx Abdominal Surgery: Yes (abdominal hernia 26 years ago ) Hx Appendectomy: No Hx Cholecystectomy: No Hx Genitourinary Surgery: No Hx Orthopedic Surgery: Yes (skull fracture repair 1 year agho ) Anesthesia Reaction: No - PPD History Previous Implant?: Yes Documented Results: Negative w/proof Implanted On Prior R Admission?: Yes Date: 06/12/17 PPD to be Administered?: No - Reproductive History Patient : No - Smoking Cessation Smoking history: Current every day smoker Have you smoked in the past 12 months: Yes Aproximately how many cigarettes per day: 10 Hx Chewing Tobacco Use: No Initiated information on smoking cessation: Yes 'Breaking Loose' booklet given: 05/09/18 - Substance & Tx. History Hx Alcohol Use: Yes Hx Substance Use: Yes Substance Use Type: Marijuana - Substances Abused Alcohol Route: Oral Frequency: Daily Amount used: 2 pt. vodka Age of first use: 19 Date of Last Use: 05/09/18 Family Disease History - Family Disease History Family Disease History: Diabetes: Mother (alive, multiple myeloma, gout, HTN ), Other: Father (, Crack Overdose), Mother Admission Physical Exam BHS - Vital Signs Vital Signs: Vital Signs - 24 hr 05/09/18 13:22 Temperature 97.3 F L Pulse Rate 95 H Respiratory 20 Rate Blood Pressure 107/74 - Physical General Appearance: Yes: Disheveled, Intoxicated, Sweating, Anxious HEENTM: Yes: EOMI, Hearing grossly Normal, Normocephalic, Normal Voice, JASPAL, Pharynx Normal Respiratory: Yes: Chest Non-Tender, Lungs Clear, Normal Breath Sounds, No Respiratory Distress, No Accessory Muscle Use Neck: Yes: No masses,lesions,Nodules, Supple, Trachea in good position Breast: Yes: Breast Exam Deferred Cardiology: Yes: Regular Rhythm, Regular Rate, S1, S2 Abdominal: Yes: Normal Bowel Sounds, Non Tender, Soft Genitourinary: Yes: Within Normal Limits Back: Yes: Muscle Spasm Musculoskeletal: Yes: full range of Motion, Gait Steady, Back pain, Muscle Pain Extremities: Yes: Normal Range of Motion, Non-Tender 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: Yes: purchasing officer II-XII NML intact, Fully Oriented, Alert, Motor Strength 5/5, Normal Response, Depressed Affect Integumentary: Yes: Normal Color, Warm, Moist Lymphatic: Yes: Within Normal Limits - Diagnostic (1) Depression Current Visit: Yes Status: Suspected Qualifiers: Depression Type: unspecified Qualified Code(s): F32.9 - Major depressive disorder, single episode, unspecified (2) Alcohol dependence with withdrawal Current Visit: Yes Status: Acute Qualifiers: Complication of substance-induced condition: uncomplicated Qualified Code(s ): F10.230 - Alcohol dependence with withdrawal, uncomplicated (3) Anxious mood Current Visit: Yes Status: Chronic (4) Marijuana dependence Current Visit: Yes Status: Chronic (5) Nicotine dependence Current Visit: Yes Status: Chronic Qualifiers: Nicotine product type: cigarettes Substance use status: in withdrawal Qualified Code(s): F17.213 - Nicotine dependence, cigarettes, with withdrawal Cleared for Admission [facility] - Detox or Rehab [facility] Level of Care: Medically Managed Detox Regimen/Protocol: Librium [facility] Breath Alcohol Content Breath Alcohol Content: 0.222 Urine Drug Screen - Results Drug Screen Negative: No Urine Drug Screen Results: THC-Marijuana Inpatient Rehab Admission - Rehab Decision to Admit Inpatient rehab admission?: No
[2018-05-09] MEDS ORDERED: DICYCLOMINE HCL 10 MG CAPSULE PO PRN (14:29)
[2018-05-09] MEDS ORDERED: ACETAMINOPHEN 325 MG TABLET (FP) PO PRN (14:29)
[2018-05-09] MEDS ORDERED: BISMUTH SUBSALICYLATE 524 MG/30 ML UD PO PRN (14:29)
[2018-05-09] MEDS ORDERED: hydrOXYzine PAMOATE 25 MG CAPSULE (FP) PO PRN (14:29)
[2018-05-09] MEDS ORDERED: MENTHOL/PHENOL 1 EACH UD MM PRN (14:29)
[2018-05-09] MEDS ORDERED: MAGNESIUM HYDROX 2400MG/30ML ORAL SUSPENSION 30 ML CUP PO PRN (14:29)
[2018-05-09] MEDS ORDERED: NICOTINE POLACRILEX 2 MG GUM BUC PRN (14:29)
[2018-05-09] MEDS ORDERED: IBUPROFEN 400 MG TABLET (FP) PO PRN (14:29)
[2018-05-09] MEDS ORDERED: MAGNESIUM CITRATE 300 ML BOTTLE PO PRN (14:29)
[2018-05-09] MEDS ORDERED: MAG HYDROX/AL HYDROX/SIMETH 30 ML UNIT-DOSE CUP PO PRN (14:29)
[2018-05-09] MEDS ORDERED: chlordiazePOXIDE HCL 25 MG CAPSULE PO PRN (14:32)
[2018-05-09 16:30] LABS: URINE APPEARANCE CLEAR; URINE BILIRUBIN NEGATIVE (<2.0 mg/dL); URINE COLOR STRAW; URINE GLUCOSE (UA) NEGATIVE (NEGATIVE); URINE KETONE NEGATIVE (NEGATIVE); URINE LEUK ESTERASE NEGATIVE (NEGATIVE); URINE NITRITE NEGATIVE (NEGATIVE); URINE PROTEIN NEGATIVE (NEGATIVE); URINE UROBILINOGEN NEGATIVE mg/dL (0.2-1.0)
[2018-05-09] MEDS: chlordiazePOXIDE HCL 25 MG CAPSULE PO SCH ×2 (17:26→22:14)
[2018-05-09] MEDS: THIAMINE HCL 100 MG TABLET (FP) PO SCH (22:14)
[2018-05-09] MEDS: MELATONIN 5 MG TABLETS PO PRN (22:14)
[2018-05-10] MEDS: chlordiazePOXIDE HCL 25 MG CAPSULE PO SCH ×4 (05:58→22:05)
[2018-05-10] MEDS: PRENATAL VITAMINS W/ FOLIC ACID TABLET (FP) PO SCH (10:10)
[2018-05-10] MEDS: NICOTINE 21 MG/24 HOURS TOPICAL PATCH TD SCH (10:10)
[2018-05-10 10:53] LABS: HEMATOCRIT 40.3 % (35.4-49); HEMOGLOBIN 13.8 GM/dL (11.7-16.9); MCH 33.5 pg (25.7-33.7); MCHC 34.3 g/dl (32.0-35.9); MEAN CELL VOLUME 97.5 fl (80-96); MEAN PLT VOLUME 8.5 fl (7.5-11.1); PLATELET COUNT 287 K/MM3 (134-434); RBC 4.13 M/mm3 (4.00-5.60); RDW 14.1 % (11.9-15.9); WHITE BLOOD COUNT 7.2 K/mm3 (4.0-10.0)
[2018-05-10 11:01] LABS: ALBUMIN 3.6 g/dl (3.4-5.0); ALK PHOS 102 U/L (45-117); ANION GAP 10 MMOL/L (8-16); BILIRUBIN,TOTAL 0.5 mg/dL (0.2-1); BLOOD UREA NITROGEN 10 mg/dL (7-18); CALCIUM 8.6 mg/dL (8.5-10.1); CHLORIDE 110 mmol/L (98-107); CO2 23 mmol/L (21-32); CREATININE 0.9 mg/dL (0.55-1.3); GLUCOSE,RANDOM 107 mg/dL (74-106); POTASSIUM 3.9 mmol/L (3.5-5.1); SGOT/AST 19 U/L (15-37); SGPT/ALT 14 U/L (13-61); SODIUM 143 mmol/L (136-145)
--- NOTE | 2018-05-10 11:37 | PN ---
S CIWA - CIWA Score Nausea/Vomitin Muscle Tremors: 2 Anxiety: 2 Agitation: 2 Paroxysmal Sweats: 2 Orientation: 0-Oriented Tacttile Disturbances: 1-Very Mild Itch/Numbness Auditory Disturbances: 1-Very Mild Visual Disturbances: 0-None Headache: 2-Mild CIWA-Ar Total Score: 14 S Progress Note (SOAP) Subjective: Low back pain,shakes, sweats and interrupted sleep Objective: 05/10/18 11:36 Last Vital Signs Temp Pulse Resp BP Pulse Ox 97.3 F L 78 18 122/76 05/10/18 10:12 05/10/18 11:00 05/10/18 11:00 05/10/18 10:12 Laboratory Last Values WBC 7.2 K/mm3 (4.0-10.0) 05/10/18 05:40 RBC 4.13 M/mm3 (4.00-5.60) 05/10/18 05:40 Hgb 13.8 GM/dL (11.7-16.9) 05/10/18 05:40 Hct 40.3 % (35.4-49) 05/10/18 05:40 MCV 97.5 fl (80-96) H 05/10/18 05:40 MCH 33.5 pg (25.7-33.7) 05/10/18 05:40 MCHC 34.3 g/dl (32.0-35.9) 05/10/18 05:40 RDW 14.1 % (11.9-15.9) 05/10/18 05:40 Plt Count 287 K/MM3 (134-434) 05/10/18 05:40 MPV 8.5 fl (7.5-11.1) 05/10/18 05:40 Sodium 143 mmol/L (136-145) 05/10/18 05:40 Potassium 3.9 mmol/L (3.5-5.1) 05/10/18 05:40 Chloride 110 mmol/L (98-107) H 05/10/18 05:40 Carbon Dioxide 23 mmol/L (21-32) 05/10/18 05:40 Anion Gap 10 MMOL/L (8-16) 05/10/18 05:40 BUN 10 mg/dL (7-18) 05/10/18 05:40 Creatinine 0.9 mg/dL (0.55-1.3) 05/10/18 05:40 Creat Clearance w eGFR 88.27 (>60) 05/10/18 05:40 Random Glucose 107 mg/dL (74-106) H 05/10/18 05:40 Calcium 8.6 mg/dL (8.5-10.1) 05/10/18 05:40 Total Bilirubin 0.5 mg/dL (0.2-1) 05/10/18 05:40 AST 19 U/L (15-37) 05/10/18 05:40 ALT 14 U/L (13-61) 05/10/18 05:40 Alkaline Phosphatase 102 U/L (45-117) 05/10/18 05:40 Total Protein 7.0 g/dl (6.4-8.2) 05/10/18 05:40 Albumin 3.6 g/dl (3.4-5.0) 05/10/18 05:40 Urine Color Straw 05/09/18 15:31 Urine Appearance Clear 05/09/18 15:31 Urine pH 6.0 (5.0-8.0) 05/09/18 15:31 Ur Specific [place] 1.004 (1.010-1.035) L 05/09/18 15:31 Urine Protein Negative (NEGATIVE) 05/09/18 15:31 Urine Glucose (UA) Negative (NEGATIVE) 05/09/18 15:31 Urine Ketones Negative (NEGATIVE) 05/09/18 15:31 Urine Blood Negative (NEGATIVE) 05/09/18 15:31 Urine Nitrite Negative (NEGATIVE) 05/09/18 15:31 Urine Bilirubin Negative (<2.0 mg/dL) 05/09/18 15:31 Urine Urobilinogen Negative mg/dL (0.2-1.0) 05/09/18 15:31 Ur Leukocyte Esterase Negative (NEGATIVE) 05/09/18 15:31 HIV 1&2 Antibody Screen Negative 05/09/18 15:00 HIV P24 Antigen Negative 05/09/18 15:00 Labs noted, no panic values Assessment: 05/10/18 11:37 Withdrawal sx Plan: Continue detox
[2018-05-10 12:05] LABS: RPR REACTIVE 1:4 (NONREACTIVE)
[2018-05-10 12:07] LABS: TREPONEMA ANTIBODY PREVIOUSLY REACTIVE (NONREACTIVE)
--- NOTE | 2018-05-10 13:09 | EKG ---
Test Reason : Blood Pressure : / mmHG Vent. Rate : 092 BPM Atrial Rate : 092 BPM P-R Int : 140 ms QRS Dur : 104 ms QT Int : 368 ms P-R-T Axes : 078 053 030 degrees QTc Int : 455 ms NORMAL SINUS RHYTHM NORMAL ECG WHEN COMPARED WITH ECG OF 10-JUN-2017 22:34, NO SIGNIFICANT CHANGE WAS FOUND Confirmed by MD RAEANN, DAISY ([id number]) on 05/10/2018 1:09:14 PM Referred By: Confirmed By:DAISY CARY MD
--- NOTE | 2018-05-10 13:29 | CONSULT ---
[facility] Psychiatric Consult - Data Date of interview: 05/10/18 Admission source: [facility] Identifying data: Readmission to [facility] for this 52 y/o -[place] male self-referred for detoxification (alcohol, cannabis). Interviewed on . Patient is , a father of five, domiciled, unemployed and supported on Public Assistance. Substance Abuse History: Confirmed by the patient in this interview. See current [facility] report for details : Smoking history: Current every day smoker. Have you smoked in the past 12 months: Yes. Aproximately how many cigarettes per day: 10. Hx Chewing Tobacco Use: No. Initiated information on smoking cessation: Yes. 'Breaking Loose' booklet given: 05/09/18. - Substance & Tx. History. Hx Alcohol Use: Yes. Hx Substance Use: Yes. Substance Use Type: Marijuana. - Substances Abused. Alcohol. Route: Oral. Frequency: Daily. Amount used: 2 pt. vodka. Age of first use: 19. Date of Last Use: 05/09/18 Medical History: No new date since encounter of 05/2017. Medical history remains consistent with GERD, herniated discs (lumbar spine), sciatica (right leg), reactive RPR (syphilis), rheumatoid arthritis, history of orthosurgery for fracture of skull + abdominal herniorraphy. Psychiatric History: History of one psychiatric hospitalization at [facility], a facility in [facility] (2013). Patient endorses the diagnoses of MDD and Anxiety Disorder. Used to be prescribed remeron + sertraline. These medications are reported to be last taken more than two years ago. Mr Hernandez indicates that he never keep his atercare appointments. Lost to follow up since 2013. Patient denies history of sucide attempts. Physical/Sexual Abuse/Trauma History: Patient denies history of abuse. Additional Comment: Urine Drug Screen Results: THC-Marijuana. Noted. Mental Status Exam - Mental Status Exam Alert and Oriented to: Time, Place, Person Cognitive Function: Good Patient Appearance: Unkempt, Disheveled Mood: Nervous, Withdrawn Affect: Mood Congruent, Constricted Patient Behavior: Fatigued, Cooperative Speech Pattern: Clear, Appropriate Voice Loudness: Normal Thought Process: Intact, Goal Oriented Thought Disorder: Not Present Hallucinations: Denies Suicidal Ideation: Denies Homicidal Ideation: Denies Insight/Judgement: Poor Sleep: Poorly, Difficulty falling asleep Appetite: Good Muscle strength/Tone: Normal Gait/Station: Other (not observed ; in bed for entire interview) Psychiatric Findings - Problem List ([place] 1, 2,3) (1) Alcohol dependence with withdrawal Current Visit: Yes Status: Acute Qualifiers: Complication of substance-induced condition: uncomplicated Qualified Code(s ): F10.230 - Alcohol dependence with withdrawal, uncomplicated (2) Marijuana dependence Current Visit: Yes Status: Chronic (3) Nicotine dependence Current Visit: Yes Status: Chronic Qualifiers: Nicotine product type: cigarettes Substance use status: in withdrawal Qualified Code(s): F17.213 - Nicotine dependence, cigarettes, with withdrawal (4) Substance induced mood disorder Current Visit: Yes Status: Chronic (5) Insomnia Current Visit: Yes Status: Chronic (6) Non-compliant patient Current Visit: Yes Status: Chronic - Initial Treatment Plan Initial Treatment Plan: Psychoeducation. Sleep hygiene. Support. Detoxification in progress. AA meetings. Groups. Counseling about methods of relapse reduction. Will not start SSRI agents at this time. Remeron 15 mg po hs. Ordered for insomnia. Side effects/benefits discussed with the patient. Mr Hernandez is agreeable with this plan of care. Observation.
--- NOTE | 2018-05-10 13:30 | PN ---
[facility] Progress Note Note: Labs noted with positive RPR and T.palladium. Patient was treated on his last admission to [facility] in May of 2017.
[2018-05-10] MEDS: THIAMINE HCL 100 MG TABLET (FP) PO SCH (22:04)
[2018-05-10] MEDS: MELATONIN 5 MG TABLETS PO PRN (22:05)
[2018-05-11] MEDS: chlordiazePOXIDE HCL 25 MG CAPSULE PO SCH ×2 (06:17→10:03)
[2018-05-11] MEDS: PRENATAL VITAMINS W/ FOLIC ACID TABLET (FP) PO SCH (10:03)
[2018-05-11] MEDS: NICOTINE 21 MG/24 HOURS TOPICAL PATCH TD SCH (10:04)
--- NOTE | 2018-05-11 12:53 | PN ---
[facility] CIWA - CIWA Score Nausea/Vomitin-No Nausea/No Vomiting Muscle Tremors: 2 Anxiety: 3 Agitation: 2 Paroxysmal Sweats: 2 Orientation: 0-Oriented Tacttile Disturbances: 1-Very Mild Itch/Numbness Auditory Disturbances: 0-None Visual Disturbances: 1-Very Mild Sensitivity Headache: 0-None Present CIWA-Ar Total Score: 11 S Progress Note (SOAP) Subjective: back pain, fatigue, interrupted sleep Objective: 05/11/18 12:51 Vital Signs Temperature 98.6 F 05/11/18 09:37 Pulse Rate 87 05/11/18 09:37 Respiratory Rate 18 05/11/18 09:37 Blood Pressure 128/85 05/11/18 09:37 O2 Sat by Pulse Oximetry (%) Laboratory Last Values WBC 7.2 K/mm3 (4.0-10.0) 05/10/18 05:40 RBC 4.13 M/mm3 (4.00-5.60) 05/10/18 05:40 Hgb 13.8 GM/dL (11.7-16.9) 05/10/18 05:40 Hct 40.3 % (35.4-49) 05/10/18 05:40 MCV 97.5 fl (80-96) H 05/10/18 05:40 MCH 33.5 pg (25.7-33.7) 05/10/18 05:40 MCHC 34.3 g/dl (32.0-35.9) 05/10/18 05:40 RDW 14.1 % (11.9-15.9) 05/10/18 05:40 Plt Count 287 K/MM3 (134-434) 05/10/18 05:40 MPV 8.5 fl (7.5-11.1) 05/10/18 05:40 Sodium 143 mmol/L (136-145) 05/10/18 05:40 Potassium 3.9 mmol/L (3.5-5.1) 05/10/18 05:40 Chloride 110 mmol/L (98-107) H 05/10/18 05:40 Carbon Dioxide 23 mmol/L (21-32) 05/10/18 05:40 Anion Gap 10 MMOL/L (8-16) 05/10/18 05:40 BUN 10 mg/dL (7-18) 05/10/18 05:40 Creatinine 0.9 mg/dL (0.55-1.3) 05/10/18 05:40 Creat Clearance w eGFR 88.27 (>60) 05/10/18 05:40 Random Glucose 107 mg/dL (74-106) H 05/10/18 05:40 Calcium 8.6 mg/dL (8.5-10.1) 05/10/18 05:40 Total Bilirubin 0.5 mg/dL (0.2-1) 05/10/18 05:40 AST 19 U/L (15-37) 05/10/18 05:40 ALT 14 U/L (13-61) 05/10/18 05:40 Alkaline Phosphatase 102 U/L (45-117) 05/10/18 05:40 Total Protein 7.0 g/dl (6.4-8.2) 05/10/18 05:40 Albumin 3.6 g/dl (3.4-5.0) 05/10/18 05:40 Urine Color Straw 05/09/18 15:31 Urine Appearance Clear 05/09/18 15:31 Urine pH 6.0 (5.0-8.0) 05/09/18 15:31 Ur Specific [place] 1.004 (1.010-1.035) L 05/09/18 15:31 Urine Protein Negative (NEGATIVE) 05/09/18 15:31 Urine Glucose (UA) Negative (NEGATIVE) 05/09/18 15:31 Urine Ketones Negative (NEGATIVE) 05/09/18 15:31 Urine Blood Negative (NEGATIVE) 05/09/18 15:31 Urine Nitrite Negative (NEGATIVE) 05/09/18 15:31 Urine Bilirubin Negative (<2.0 mg/dL) 05/09/18 15:31 Urine Urobilinogen Negative mg/dL (0.2-1.0) 05/09/18 15:31 Ur Leukocyte Esterase Negative (NEGATIVE) 05/09/18 15:31 RPR Titer Reactive 1:4 (NONREACTIVE) H 05/10/18 05:40 T.pallidum Ab (MHA) Previously reactive (NONREACTIVE) 05/10/18 05:40 HIV 1&2 Antibody Screen Negative 05/09/18 15:00 HIV P24 Antigen Negative 05/09/18 15:00 labs noted Assessment: 05/11/18 12:52 Aox3 no distress + nasal congestion + back pain full ROM withdrawal sx increase po fluids cane for ambulation continue detox continue to monitor
[2018-05-11] MEDS ORDERED: chlordiazePOXIDE HCL 10 MG CAPSULE PO PRN (17:00)
[2018-05-11] MEDS: chlordiazePOXIDE HCL 10 MG CAPSULE PO SCH ×2 (17:18→22:05)
[2018-05-11] MEDS: MELATONIN 5 MG TABLETS PO PRN (22:05)
[2018-05-11] MEDS: THIAMINE HCL 100 MG TABLET (FP) PO SCH (22:05)
[2018-05-12] MEDS: chlordiazePOXIDE HCL 10 MG CAPSULE PO SCH (05:55)
[2018-05-12 09:17] VITALS: BP 111/92; PULSE 96; TEMP 97.7
--- NOTE | 2018-05-12 09:25 | PN ---
[facility] Progress Note Note: pt states he has things to do and will follow [facility]. pt was asked to stay to complete his detox by nursing, medical and counseling staff but pt insisted to leave. pt signed out AMA.
--- NOTE | 2018-05-12 09:26 | DS ---
[facility] Detox Discharge Summary Admission Date: 05/09/18 - History Present History: Alcohol Dependence, Cannabis Dependence - Physical Exam Results Vital Signs: Vital Signs Temperature 97.7 F 05/12/18 09:16 Pulse Rate 96 H 05/12/18 09:16 Respiratory Rate 18 05/12/18 09:16 Blood Pressure 111/92 05/12/18 09:16 O2 Sat by Pulse Oximetry (%) - Treatment Hospital Course: Discharged Condition Good - Medication Discharge Medications: Ambulatory Orders Mirtazapine [Remeron -] 25 mg PO DAILY 06/10/17 Sertraline HCl [Zoloft] 75 mg PO HS 06/10/17 Mirtazapine [Remeron -] 15 mg PO HS #30 tablet 06/12/17 - Diagnosis (1) Alcohol dependence with withdrawal Current Visit: Yes Status: Chronic Qualifiers: Complication of substance-induced condition: uncomplicated Qualified Code(s ): F10.230 - Alcohol dependence with withdrawal, uncomplicated (2) Anxious mood Current Visit: Yes Status: Chronic (3) Insomnia Current Visit: Yes Status: Chronic (4) Marijuana dependence Current Visit: Yes Status: Chronic (5) Nicotine dependence Current Visit: Yes Status: Chronic Qualifiers: Nicotine product type: cigarettes Substance use status: in withdrawal Qualified Code(s): F17.213 - Nicotine dependence, cigarettes, with withdrawal (6) Non-compliant patient Current Visit: Yes Status: Chronic (7) Substance induced mood disorder Current Visit: Yes Status: Chronic (8) Depression Current Visit: Yes Status: Suspected Qualifiers: Depression Type: unspecified Qualified Code(s): F32.9 - Major depressive disorder, single episode, unspecified (9) Positive serological reaction for syphilis Current Visit: No Status: Acute - AMA Did Patient Leave Against Medical Advice: Yes (going home)
[2018-05-12] MEDS ORDERED: chlordiazePOXIDE HCL 10 MG CAPSULE PO SCH (17:00)
== END 2018-05-12 09:40 | disposition left against medical advice (07) | DRG 770 ==
LOC: YASAS 12:01 → Y6N 14:40
PROVIDERS: ADMIT Surgery; ATTEND Surgery
PROC: HZ2ZZZZ Detoxification Services for Substance Abuse Treatment (ICD-10-PCS; principal; 2018-05-09)
DX: F10.230 Alcohol dependence with withdrawal, uncomplicated (principal); F12.20 Cannabis dependence, uncomplicated; F17.213 Nicotine dependence, cigarettes, with withdrawal; F19.24 Other psychoactive substance dependence with psychoactive substance-induced mood disorder; F32.9 Major depressive disorder, single episode, unspecified; F41.9 Anxiety disorder, unspecified; G47.00 Insomnia, unspecified; A53.0 Latent syphilis, unspecified as early or late; Z91.19 Patient's noncompliance with other medical treatment and regimen; Z88.0 Allergy status to penicillin; Z88.8 Allergy status to other drugs, medicaments and biological substances
CPT/HCPCS: 36415; 80053; 81003; 85027; 86593; 86780; 87389; 93005; 93010

== ENCOUNTER 2018-09-16 16:42 | Inpatient (IN) | payer OTHER ==
[2018-09-16 18:58] VITALS: BMI 19.6
--- NOTE | 2018-09-16 20:34 | HP ---
CIWA Score Nausea/Vomitin-No Nausea/No Vomiting Muscle Tremors: 1-None Visible, but [place] Anxiety: 4-Mod. Anxious/Guarded Agitation: 4-Moderately Restless Paroxysmal Sweats: No Perspiration Orientation: 0-Oriented Tacttile Disturbances: 2-Mild Itch/Numbness/Burn Auditory Disturbances: 0-None Visual Disturbances: 2-Mild Sensitivity Headache: 2-Mild CIWA-Ar Total Score: 15 - Admission Criteria OASAS Guidelines: Admission for Medically Managed Detox: Requires at least one of the followin. CIWA greater than 12 2. Seizures within the past 24 hours 3. Delirium tremens within the past 24 hours 4. Hallucinations within the past 24 hours 5. Acute intervention needed for co occurring medical disorder 6. Acute intervention needed for co occurring psychiatric disorder 7. Severe withdrawal that cannot be handled at a lower level of care (continued vomiting, continued diarrhea, abnormal vital signs) requiring intravenous medication and/or fluids 8. Patient presents the following: CIWA greater than 12 Admission Criteria Met: Admission criteria met Admission ROS [facility] Chief Complaint: c/o withdrawal sx's. seeking stabilization with detox Allergies/Adverse Reactions: Allergies Allergy/AdvReac Type Severity Reaction Status Date / Time hydromorphone [From Dilaudid] Allergy Severe Hives Verified 09/16/18 18:24 Penicillins Allergy Severe Swelling Verified 09/16/18 18:24 vegetables Allergy Intermediate Hives Uncoded 09/16/18 18:24 History of Present Illness: 52 Y.O. MALE WITH HX/O ALCOHOLISM AND CANNABIS ABUSE HERE FOR DETOX. PRESENTS WITH C/O WITHDRAWAL SX'S. CIWA 15. HE IS SELF REFERRED. LAST ADMIT 04/2018. DENIES INPATIENT TXMENT SINCE. REPORTS RELPASING ABOUT 1 MONTH AFTER WHICH HE REPORTS IS THE LONGEST CLEAN TIME HES EVER HAD. DENIES HX/O BLACK OUTS/ SZ D/O. DOMICILED, UNEMPLOYED- HRA, DENIES LEGALS. PMHX- HERNIATED DISK, RA, SCIATICA, [place] OF R EAR PSYCH ANXIETY, DEPRESSION Exam Limitations: Other ([place] LEFT EAR) - Ebola screening Have you traveled outside of the country in the last 21 days: No (N) Have you had contact with anyone from an Ebola affected area: No Do you have a fever: No - Review of Systems Constitutional: Chills, Night Sweats, Changes in sleep EENT: reports: Other (MISSING TEETH) Respiratory: reports: No Symptoms reported Cardiac: reports: No Symptoms Reported GI: reports: Poor Fluid Intake : reports: No Symptoms Reported Musculoskeletal: reports: Back Pain (CHRONIC), Joint Pain (CHRONIC) Integumentary: reports: Other (HEALING LACERATION S/P REMOVAL OF SUTURES TO SCALP) Neuro: reports: Headache, Tremors (FELT) Endocrine: reports: No Symptoms Reported Hematology: reports: No Symptoms Reported Psychiatric: reports: Orientated x3, Anxious, Depressed (DENIES SI) Other Systems: Reviewed and Negative Patient History - Patient Medical History Hx Anemia: No Hx Asthma: No Hx Chronic Obstructive Pulmonary Disease (COPD): No Hx Cancer: No Hx Cardiac Disorders: No Hx Congestive Heart Failure: No Hx Hypertension: No Hx Hypercholesterolemia: No Hx Pacemaker: No HX Cerebrovascular Accident: No Hx Seizures: No Hx Dementia: No Hx Diabetes: No Hx Gastrointestinal Disorders: No Hx Liver Disease: No Hx Genitourinary Disorders: No Hx Sexually Transmitted Disorders: No Hx Renal Disease (ESRD): No Hx Thyroid Disease: No Hx Human Immunodeficiency Virus (HIV): No Hx Hepatitis C: No Hx Depression: Yes Hx Suicide Attempt: No Hx Bipolar Disorder: No Hx Schizophrenia: No Other Medical History: ANXIETY, RA, SCIATICA, HERNIATED DISK - Patient Surgical History Past Surgical History: Yes Hx Neurologic Surgery: No Hx Cataract Extraction: No Hx Cardiac Surgery: No Hx Lung Surgery: No Hx Breast Surgery: No Hx Breast Biopsy: No Hx Abdominal Surgery: Yes (abdominal hernia 26 years ago ) Hx Appendectomy: No Hx Cholecystectomy: No Hx Genitourinary Surgery: No Hx Orthopedic Surgery: Yes (skull fracture repair 1 year agho ) Hx Hysterectomy: No Anesthesia Reaction: No - PPD History Previous Implant?: Yes Documented Results: Negative w/proof Implanted On Prior [facility] Admission?: Yes Date: 06/12/17 Results: 0MM PPD to be Administered?: Yes - Smoking Cessation Smoking history: Current every day smoker Have you smoked in the past 12 months: Yes Aproximately how many cigarettes per day: 10 Cigars Per Day: 0 Hx Chewing Tobacco Use: No Initiated information on smoking cessation: Yes 'Breaking Loose' booklet given: 09/16/18 - Substance & Tx. History Hx Alcohol Use: Yes Hx Substance Use: Yes Substance Use Type: Alcohol, Marijuana Hx Substance Use Treatment: Yes ([facility]) - Substances abused Alcohol Substance route: Oral Frequency: Daily Amount used: 1 - 1.5 pint/daily Age of first use: 20 Date of last use: 09/16/18 Marijuana/Hashish Substance route: Smoking Frequency: 1-3 times last 30 days Amount used: 1 JOINT Age of first use: 14 Date of last use: 08/29/18 Family Disease History - Family Disease History Family Disease History: Diabetes: Mother (alive, multiple myeloma, gout, HTN ), Other: Father (, Crack Overdose), Mother Admission Physical Exam S - Vital Signs Vital Signs: Vital Signs - 24 hr 09/16/18 18:32 Temperature 98.1 F Pulse Rate 104 H Respiratory 16 Rate Blood Pressure 105/69 - Physical General Appearance: Yes: Tremorous (FELT), Anxious HEENTM: Yes: EOMI, Normocephalic, Normal Voice, JASPAL, Pharynx Normal, Hearing Decreased (RIGHT EAR), Other (NO TOP TEETH) Respiratory: Yes: Chest Non-Tender, Lungs Clear, Normal Breath Sounds, No Respiratory Distress, No Accessory Muscle Use Neck: Yes: No masses,lesions,Nodules, Supple, Trachea in good position Breast: Yes: Breast Exam Deferred Cardiology: Yes: Regular Rhythm, Regular Rate, S1, S2 Abdominal: Yes: Non Tender, Soft, Increased Bowel Sounds Genitourinary: Yes: Within Normal Limits Back: Yes: Other (HEALING ABRASION TO BACK F LEFT SHOULDER) Musculoskeletal: Yes: full range of Motion, Gait Steady, Back pain (CHRONIC) Extremities: Yes: Normal Capillary Refill, Normal Range of Motion, Non-Tender, Tremors (FELT) 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: Yes: Alert, Motor Strength 5/5 Integumentary: Yes: Dry, Warm, Other (HEALING LACERATION TO MID SCALP S/P STAPLE REMOVAL) Lymphatic: Yes: Within Normal Limits - Diagnostic (1) Sciatica Status: Chronic Qualifiers: Laterality: unspecified laterality Qualified Code(s): M54.30 - Sciatica, unspecified side (2) Rheumatoid arthritis Status: Chronic Qualifiers: Rheumatoid arthritis location: unspecified site (3) Herniated disc Status: Chronic (4) Alcohol dependence with withdrawal Status: Acute Qualifiers: Complication of substance-induced condition: uncomplicated Qualified Code(s ): F10.230 - Alcohol dependence with withdrawal, uncomplicated (5) Anxious mood Status: Acute (6) Marijuana dependence Status: Acute (7) Nicotine dependence Status: Chronic Qualifiers: Nicotine product type: cigarettes Substance use status: in withdrawal Qualified Code(s): F17.213 - Nicotine dependence, cigarettes, with withdrawal (8) Substance induced mood disorder Status: Suspected (9) Scalp laceration Status: Acute Qualifiers: Encounter type: sequela Qualified Code(s): S01.01XS - Laceration without foreign body of scalp, sequela (10) [place] (hard of hearing) Status: Chronic Qualifiers: Laterality: right Inpatient Rehab Admission - Rehab Decision to Admit Inpatient rehab admission?: No
[2018-09-16] MEDS ORDERED: MAGNESIUM HYDROX 2400MG/30ML ORAL SUSPENSION 30 ML CUP PO PRN (20:40)
[2018-09-16] MEDS ORDERED: BISMUTH SUBSALICYLATE 524 MG/30 ML UD PO PRN (20:40)
[2018-09-16] MEDS ORDERED: ACETAMINOPHEN 325 MG TABLET (FP) PO PRN (20:40)
[2018-09-16] MEDS ORDERED: METHOCARBAMOL 500 MG TABLET PO PRN (20:40)
[2018-09-16] MEDS ORDERED: hydrOXYzine PAMOATE 25 MG CAPSULE (FP) PO PRN (20:40)
[2018-09-16] MEDS ORDERED: MENTHOL/PHENOL 1 EACH UD MM PRN (20:40)
[2018-09-16] MEDS ORDERED: MAG HYDROX/AL HYDROX/SIMETH 30 ML UNIT-DOSE CUP PO PRN (20:40)
[2018-09-16] MEDS ORDERED: chlordiazePOXIDE HCL 25 MG CAPSULE PO PRN (20:40)
[2018-09-16] MEDS ORDERED: DICYCLOMINE HCL 10 MG CAPSULE PO PRN (20:40)
[2018-09-16] MEDS ORDERED: MAGNESIUM CITRATE 300 ML BOTTLE PO PRN (20:40)
[2018-09-16] MEDS ORDERED: IBUPROFEN 400 MG TABLET (FP) PO PRN (20:40)
[2018-09-16] MEDS ORDERED: NICOTINE POLACRILEX 2 MG GUM BUC PRN (22:46)
[2018-09-16] MEDS: chlordiazePOXIDE HCL 25 MG CAPSULE PO SCH (23:06)
[2018-09-16] MEDS: THIAMINE HCL 100 MG TABLET (FP) PO SCH (23:07)
[2018-09-16] MEDS: ACETAMINOPHEN 325 MG TABLET (FP) PO PRN (23:08)
[2018-09-17] MEDS: chlordiazePOXIDE HCL 25 MG CAPSULE PO SCH ×4 (05:59→22:31)
[2018-09-17] MEDS: PRENATAL VITAMINS W/ FOLIC ACID TABLET (FP) PO SCH (10:09)
[2018-09-17] MEDS: NICOTINE 14 MG/24 HOURS TOPICAL PATCH TD SCH (10:09)
[2018-09-17 12:17] LABS: HEMATOCRIT 41.5 % (35.4-49); HEMOGLOBIN 14.2 GM/dL (11.7-16.9); MCH 31.8 pg (25.7-33.7); MCHC 34.2 g/dl (32.0-35.9); MEAN CELL VOLUME 93.2 fl (80-96); MEAN PLT VOLUME 8.2 fl (7.5-11.1); PLATELET COUNT 212 K/MM3 (134-434); RBC 4.45 M/mm3 (4.00-5.60); RDW 15.2 % (11.9-15.9); WHITE BLOOD COUNT 6.2 K/mm3 (4.0-10.0)
[2018-09-17 12:36] LABS: ALBUMIN 3.8 g/dl (3.4-5.0); BILIRUBIN,TOTAL 1.2 mg/dL (0.2-1); CALCIUM 9.2 mg/dL (8.5-10.1); POTASSIUM 3.9 mmol/L (3.5-5.1); TOT PROT 7.3 g/dl (6.4-8.2)
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
--- NOTE | 2018-09-17 13:45 | PN ---
S CIWA - CIWA Score Nausea/Vomitin Muscle Tremors: 3 Anxiety: 2 Agitation: 2 Paroxysmal Sweats: 1-Minimal Palms Moist Orientation: 0-Oriented Tacttile Disturbances: 0-None Auditory Disturbances: 0-None Visual Disturbances: 0-None Headache: 2-Mild CIWA-Ar Total Score: 12 BHS Progress Note (SOAP) Subjective: 52 Y.O. MALE WITH HX/O ALCOHOLISM AND CANNABIS ABUSE HERE FOR DETOX, today day # 2. Says he is doing well. O: Vital Signs - 24 hr 09/16/18 09/16/18 09/17/18 18:32 23:13 00:30 Temperature 98.1 F 98.4 F Pulse Rate 104 H 91 H Respiratory 16 16 18 Rate Blood Pressure 105/69 143/81 09/17/18 09/17/18 09/17/18 03:30 06:47 09:17 Temperature 98.1 F 97.2 F L Pulse Rate 87 85 Respiratory 18 18 17 Rate Blood Pressure 127/62 108/70 09/17/18 13:40 Temperature 98.2 F Pulse Rate 80 Respiratory 18 Rate Blood Pressure 127/88 Laboratory Tests 09/17/18 09/17/18 07:00 07:00 WBC 6.2 RBC 4.45 Hgb 14.2 Hct 41.5 MCV 93.2 MCH 31.8 MCHC 34.2 RDW 15.2 Plt Count 212 D MPV 8.2 Sodium 137 Potassium 3.9 Chloride 98 Carbon Dioxide 30 Anion Gap 9 BUN 20.0 H Creatinine 1.0 Est GFR (CKD-EPI)AfAm 99.15 Est GFR (CKD-EPI)NonAf 85.55 Random Glucose 127 H Calcium 9.2 Total Bilirubin 1.2 H AST 35 ALT 30 Alkaline Phosphatase 113 Total Protein 7.3 Albumin 3.8 VS labs WNL a/p AUD- continue detox protocol with librium, day #2
[2018-09-17 15:26] LABS: EPI CELLS 4.4 /HPF (0-5/HPF); HYALINE CASTS 14 /lpf (0-8); PH,URINE 5.5 (5.0-8.0); URINE APPEARANCE CLOUDY; URINE BACTERIA 11.3 /hpf (NEGATIVE); URINE BILIRUBIN 1+ (NEGATIVE); URINE COLOR DK YELLOW; URINE GLUCOSE (UA) NEGATIVE (NEGATIVE); URINE KETONE TRACE (NEGATIVE); URINE LEUK ESTERASE TRACE (NEGATIVE); URINE NITRITE POSITIVE (NEGATIVE); URINE PROTEIN 1+ (NEGATIVE); URINE WBC 4 /hpf (0-5)
[2018-09-17 15:58] LABS: URINE CRYSTALS CALCIUM OXALATE=1+ /hpf
[2018-09-17] MEDS: THIAMINE HCL 100 MG TABLET (FP) PO SCH (22:31)
[2018-09-17] MEDS: ACETAMINOPHEN 325 MG TABLET (FP) PO PRN (22:31)
[2018-09-17] MEDS: MIRTAZAPINE 15 MG TABLET (FP) PO SCH (22:31)
[2018-09-17] MEDS: MELATONIN 5 MG TABLETS PO PRN (22:34)
[2018-09-18] MEDS: chlordiazePOXIDE HCL 25 MG CAPSULE PO SCH ×4 (06:00→22:19)
[2018-09-18 09:36] LABS: RPR REACTIVE 1:2 (NONREACTIVE)
[2018-09-18 09:37] LABS: TREPONEMA ANTIBODY PREVIOUSLY REACTIVE (NONREACTIVE)
[2018-09-18] MEDS: NICOTINE 14 MG/24 HOURS TOPICAL PATCH TD SCH (10:15)
[2018-09-18] MEDS: PRENATAL VITAMINS W/ FOLIC ACID TABLET (FP) PO SCH (10:16)
[2018-09-18] MEDS: ACETAMINOPHEN 325 MG TABLET (FP) PO PRN ×2 (10:17→22:21)
--- NOTE | 2018-09-18 13:32 | PN ---
S CIWA - CIWA Score Nausea/Vomitin Muscle Tremors: 2 Anxiety: 2 Agitation: 2 Paroxysmal Sweats: No Perspiration Orientation: 0-Oriented Tacttile Disturbances: 1-Very Mild Itch/Numbness Auditory Disturbances: 0-None Visual Disturbances: 0-None Headache: 2-Mild CIWA-Ar Total Score: 11 S Progress Note (SOAP) Subjective: alert,irritable,anxious,interrupted sleep,tremor Objective: 09/18/18 13:28 Vital Signs Temperature 97.5 F L 09/18/18 13:11 Pulse Rate 95 H 09/18/18 13:11 Respiratory Rate 17 09/18/18 13:11 Blood Pressure 138/96 09/18/18 13:11 O2 Sat by Pulse Oximetry (%) Laboratory Last Values WBC 6.2 K/mm3 (4.0-10.0) 09/17/18 07:00 RBC 4.45 M/mm3 (4.00-5.60) 09/17/18 07:00 Hgb 14.2 GM/dL (11.7-16.9) 09/17/18 07:00 Hct 41.5 % (35.4-49) 09/17/18 07:00 MCV 93.2 fl (80-96) 09/17/18 07:00 MCH 31.8 pg (25.7-33.7) 09/17/18 07:00 MCHC 34.2 g/dl (32.0-35.9) 09/17/18 07:00 RDW 15.2 % (11.9-15.9) 09/17/18 07:00 Plt Count 212 K/MM3 (134-434) D 09/17/18 07:00 MPV 8.2 fl (7.5-11.1) 09/17/18 07:00 Sodium 137 mmol/L (136-145) 09/17/18 07:00 Potassium 3.9 mmol/L (3.5-5.1) 09/17/18 07:00 Chloride 98 mmol/L (98-107) 09/17/18 07:00 Carbon Dioxide 30 mmol/L (21-32) 09/17/18 07:00 Anion Gap 9 MMOL/L (8-16) 09/17/18 07:00 BUN 20.0 mg/dL (7-18) H 09/17/18 07:00 Creatinine 1.0 mg/dL (0.55-1.3) 09/17/18 07:00 Est GFR (CKD-EPI)AfAm 99.15 09/17/18 07:00 Est GFR (CKD-EPI)NonAf 85.55 09/17/18 07:00 Random Glucose 127 mg/dL (74-106) H 09/17/18 07:00 Calcium 9.2 mg/dL (8.5-10.1) 09/17/18 07:00 Total Bilirubin 1.2 mg/dL (0.2-1) H 09/17/18 07:00 AST 35 U/L (15-37) 09/17/18 07:00 ALT 30 U/L (13-61) 09/17/18 07:00 Alkaline Phosphatase 113 U/L (45-117) 09/17/18 07:00 Total Protein 7.3 g/dl (6.4-8.2) 09/17/18 07:00 Albumin 3.8 g/dl (3.4-5.0) 09/17/18 07:00 Urine Color Dk yellow 09/17/18 10:50 Urine Appearance Cloudy 09/17/18 10:50 Urine pH 5.5 (5.0-8.0) 09/17/18 10:50 Ur Specific [place] 1.030 (1.010-1.035) 09/17/18 10:50 Urine Protein 1+ (NEGATIVE) H 09/17/18 10:50 Urine Glucose (UA) Negative (NEGATIVE) 09/17/18 10:50 Urine Ketones Trace (NEGATIVE) H 09/17/18 10:50 Urine Blood Negative (NEGATIVE) 09/17/18 10:50 Urine Nitrite Positive (NEGATIVE) H 09/17/18 10:50 Urine Bilirubin 1+ (NEGATIVE) H 09/17/18 10:50 Urine Urobilinogen 2.0 mg/dL (0.2-1.0) 09/17/18 10:50 Ur Leukocyte Esterase Trace (NEGATIVE) 09/17/18 10:50 Urine WBC (Auto) 4 /hpf (0-5) 09/17/18 10:50 Urine Casts (Auto) 14 /lpf (0-8) 09/17/18 10:50 U Epithel Cells (Auto) 4.4 /HPF (0-5/HPF) 09/17/18 10:50 Urine Crystals (Auto) Calcium oxalate=1+ /hpf 09/17/18 10:50 Urine Bacteria (Auto) 11.3 /hpf (NEGATIVE) 09/17/18 10:50 RPR Titer Reactive 1:2 (NONREACTIVE) H D 09/17/18 07:00 T.pallidum Ab (MHA) Previously reactive (NONREACTIVE) 09/17/18 07:00 HIV 1&2 Antibody Screen Negative 09/17/18 07:00 HIV P24 Antigen Negative 09/17/18 07:00 history of syphilis treated Assessment: 09/18/18 13:32 withdrawal symptom Plan: continue detox,librium regimen
--- NOTE | 2018-09-18 13:37 | PN ---
S CIWA - CIWA Score Nausea/Vomitin-Mild Nausea/No Vomiting Muscle Tremors: 2 Anxiety: 2 Agitation: 1-Slight > Activity Paroxysmal Sweats: No Perspiration Orientation: 0-Oriented Tacttile Disturbances: 1-Very Mild Itch/Numbness Auditory Disturbances: 0-None Visual Disturbances: 0-None Headache: 2-Mild CIWA-Ar Total Score: 9 BHS COWS - Scale Resting Pulse: 1= RI 81-100 Sweatin= Chills/Flushing Restless Observation: 1= Difficult to Sit Still Pupil Size: 1= Pupils >than Normal Bone or Joint Aches: 1= Mild Discomfort Runny Nose/ Eye Tearin= Nasal Congestion GI Upset > 30mins: 1= Stomach Cramp Tremor Observation of Outstretched Hands: 2= Slight Tremor Visible Yawning Observation: 1= 1-2x During Session Anxiety or Irritability: 2=Irritable/Anxious Goose Flesh Skin: 0=Smooth Skin COWS Score: 12 S Progress Note (SOAP) Subjective: alert,irritable,anxious,interrupted sleep,tremor,pain in the body and back Objective: 09/18/18 13:36 Vital Signs Temperature 97.5 F L 09/18/18 13:11 Pulse Rate 95 H 09/18/18 13:11 Respiratory Rate 17 09/18/18 13:11 Blood Pressure 138/96 09/18/18 13:11 O2 Sat by Pulse Oximetry (%) Laboratory Last Values WBC 6.2 K/mm3 (4.0-10.0) 09/17/18 07:00 RBC 4.45 M/mm3 (4.00-5.60) 09/17/18 07:00 Hgb 14.2 GM/dL (11.7-16.9) 09/17/18 07:00 Hct 41.5 % (35.4-49) 09/17/18 07:00 MCV 93.2 fl (80-96) 09/17/18 07:00 MCH 31.8 pg (25.7-33.7) 09/17/18 07:00 MCHC 34.2 g/dl (32.0-35.9) 09/17/18 07:00 RDW 15.2 % (11.9-15.9) 09/17/18 07:00 Plt Count 212 K/MM3 (134-434) D 09/17/18 07:00 MPV 8.2 fl (7.5-11.1) 09/17/18 07:00 Sodium 137 mmol/L (136-145) 09/17/18 07:00 Potassium 3.9 mmol/L (3.5-5.1) 09/17/18 07:00 Chloride 98 mmol/L (98-107) 09/17/18 07:00 Carbon Dioxide 30 mmol/L (21-32) 09/17/18 07:00 Anion Gap 9 MMOL/L (8-16) 09/17/18 07:00 BUN 20.0 mg/dL (7-18) H 09/17/18 07:00 Creatinine 1.0 mg/dL (0.55-1.3) 09/17/18 07:00 Est GFR (CKD-EPI)AfAm 99.15 09/17/18 07:00 Est GFR (CKD-EPI)NonAf 85.55 09/17/18 07:00 Random Glucose 127 mg/dL (74-106) H 09/17/18 07:00 Calcium 9.2 mg/dL (8.5-10.1) 09/17/18 07:00 Total Bilirubin 1.2 mg/dL (0.2-1) H 09/17/18 07:00 AST 35 U/L (15-37) 09/17/18 07:00 ALT 30 U/L (13-61) 09/17/18 07:00 Alkaline Phosphatase 113 U/L (45-117) 09/17/18 07:00 Total Protein 7.3 g/dl (6.4-8.2) 09/17/18 07:00 Albumin 3.8 g/dl (3.4-5.0) 09/17/18 07:00 Urine Color Dk yellow 09/17/18 10:50 Urine Appearance Cloudy 09/17/18 10:50 Urine pH 5.5 (5.0-8.0) 09/17/18 10:50 Ur Specific [place] 1.030 (1.010-1.035) 09/17/18 10:50 Urine Protein 1+ (NEGATIVE) H 09/17/18 10:50 Urine Glucose (UA) Negative (NEGATIVE) 09/17/18 10:50 Urine Ketones Trace (NEGATIVE) H 09/17/18 10:50 Urine Blood Negative (NEGATIVE) 09/17/18 10:50 Urine Nitrite Positive (NEGATIVE) H 09/17/18 10:50 Urine Bilirubin 1+ (NEGATIVE) H 09/17/18 10:50 Urine Urobilinogen 2.0 mg/dL (0.2-1.0) 09/17/18 10:50 Ur Leukocyte Esterase Trace (NEGATIVE) 09/17/18 10:50 Urine WBC (Auto) 4 /hpf (0-5) 09/17/18 10:50 Urine Casts (Auto) 14 /lpf (0-8) 09/17/18 10:50 U Epithel Cells (Auto) 4.4 /HPF (0-5/HPF) 09/17/18 10:50 Urine Crystals (Auto) Calcium oxalate=1+ /hpf 09/17/18 10:50 Urine Bacteria (Auto) 11.3 /hpf (NEGATIVE) 09/17/18 10:50 RPR Titer Reactive 1:2 (NONREACTIVE) H D 09/17/18 07:00 T.pallidum Ab (MHA) Previously reactive (NONREACTIVE) 09/17/18 07:00 HIV 1&2 Antibody Screen Negative 09/17/18 07:00 HIV P24 Antigen Negative 09/17/18 07:00 09/18/18 13:38 previously treated for syphilis Assessment: 09/18/18 13:39 withdrawal symptom Plan: continue detox methadone regimen,bun 20,dehydration,encourage fluid
--- NOTE | 2018-09-18 13:43 | PN ---
[facility] Progress Note Note: please disregard the note on this patient on ,the note belong to other patient
[2018-09-18] MEDS: THIAMINE HCL 100 MG TABLET (FP) PO SCH (22:19)
[2018-09-18] MEDS: MIRTAZAPINE 15 MG TABLET (FP) PO SCH (22:19)
[2018-09-18] MEDS: MELATONIN 5 MG TABLETS PO PRN (22:19)
[2018-09-19] MEDS ORDERED: chlordiazePOXIDE HCL 10 MG CAPSULE PO PRN
[2018-09-19] MEDS: chlordiazePOXIDE HCL 10 MG CAPSULE PO SCH ×4 (05:38→22:12)
[2018-09-19] MEDS: NICOTINE 14 MG/24 HOURS TOPICAL PATCH TD SCH (10:09)
[2018-09-19] MEDS: PRENATAL VITAMINS W/ FOLIC ACID TABLET (FP) PO SCH (10:09)
--- NOTE | 2018-09-19 12:04 | PN ---
S CIWA - CIWA Score Nausea/Vomitin-Mild Nausea/No Vomiting Muscle Tremors: 1-None Visible, but [place] Anxiety: 1-Mildly Anxious Agitation: 2 Paroxysmal Sweats: No Perspiration Orientation: 0-Oriented Tacttile Disturbances: 1-Very Mild Itch/Numbness Auditory Disturbances: 0-None Visual Disturbances: 0-None Headache: 2-Mild CIWA-Ar Total Score: 8 B[facility] Progress Note (SOAP) Subjective: alert,irritable,anxious,interrupted sleep Objective: 09/19/18 12:02 Vital Signs Temperature 99.1 F 09/19/18 09:52 Pulse Rate 88 09/19/18 09:52 Respiratory Rate 16 09/19/18 09:52 Blood Pressure 120/75 09/19/18 09:52 O2 Sat by Pulse Oximetry (%) Assessment: 09/19/18 12:03 withdrawal symptom Plan: continue detox librium regien,encourage oral fluid,discharge in am,follow up with after care program as arrangement
[2018-09-19] MEDS: MIRTAZAPINE 15 MG TABLET (FP) PO SCH (22:12)
[2018-09-19] MEDS: THIAMINE HCL 100 MG TABLET (FP) PO SCH (22:12)
[2018-09-19] MEDS: MELATONIN 5 MG TABLETS PO PRN (22:13)
[2018-09-19] MEDS: ACETAMINOPHEN 325 MG TABLET (FP) PO PRN (22:13)
[2018-09-20] MEDS ORDERED: chlordiazePOXIDE HCL 10 MG CAPSULE PO SCH (05:00)
[2018-09-20 06:47] VITALS: BP 113/75; PULSE 77; TEMP 97.5
--- NOTE | 2018-09-20 13:51 | DS ---
[facility] Detox Discharge Summary Admission Date: 09/16/18 Discharge Date: 09/20/18 - History Present History: Alcohol Dependence, Cannabis Dependence Additional Comments: Pt is medically cleared and discharged today. Pt completed his detox protocol. As per social science professor's notes, "Counselor met with patient to discuss his progress. Patient states he is having anxiety about outpatient treatment and wanted to go to [address] for [address] treatment. We call the facility for availability and was told that the earliest admission date is 09/23. After further discussion, he reconsider and decided that [facility] is his choice for aftercare. Patient states he understand the need for on going treatment". Pt is encouraged to follow-up with a CD outpatient program as discussed with his counsellor and also to follow-up with his PMD. Pt is alert and oriented x3 and in no acute respiratory distress. Pertinent Past History: H/O alcohol and cannabis use disorder. - Physical Exam Results Vital Signs: Vital Signs Temperature 97.5 F L 09/20/18 06:00 Pulse Rate 77 09/20/18 06:00 Respiratory Rate 18 09/20/18 06:00 Blood Pressure 113/75 09/20/18 06:00 O2 Sat by Pulse Oximetry (%) Vital Signs 09/20/18 06:00 Temperature 97.5 F L Pulse Rate 77 Respiratory 18 Rate Blood Pressure 113/75 Lab Results WBC 6.2 K/mm3 (4.0-10.0) 09/17/18 07:00 RBC 4.45 M/mm3 (4.00-5.60) 09/17/18 07:00 Hgb 14.2 GM/dL (11.7-16.9) 09/17/18 07:00 Hct 41.5 % (35.4-49) 09/17/18 07:00 MCV 93.2 fl (80-96) 09/17/18 07:00 MCHC 34.2 g/dl (32.0-35.9) 09/17/18 07:00 RDW 15.2 % (11.9-15.9) 09/17/18 07:00 Plt Count 212 K/MM3 (134-434) D 09/17/18 07:00 Sodium 137 mmol/L (136-145) 09/17/18 07:00 Potassium 3.9 mmol/L (3.5-5.1) 09/17/18 07:00 Chloride 98 mmol/L (98-107) 09/17/18 07:00 Carbon Dioxide 30 mmol/L (21-32) 09/17/18 07:00 Anion Gap 9 MMOL/L (8-16) 09/17/18 07:00 BUN 20.0 mg/dL (7-18) H 09/17/18 07:00 Creatinine 1.0 mg/dL (0.55-1.3) 09/17/18 07:00 Random Glucose 127 mg/dL (74-106) H 09/17/18 07:00 Calcium 9.2 mg/dL (8.5-10.1) 09/17/18 07:00 Labs noted. Pertinent Admission Physical Exam Findings: withdrawal symptoms. - Treatment Hospital Course: Detox Protocol Followed, Detoxed Safely, Responded well, Discharged Condition Good - Medication Discharge Medications: Ambulatory Orders Sertraline HCl [Zoloft] 75 mg PO HS 06/10/17 Mirtazapine [Remeron -] 15 mg PO HS #30 tablet 06/12/17 Acetaminophen [Tylenol] 650 mg PO BID 09/16/18 - Diagnosis (1) Alcohol dependence with withdrawal Status: Acute Qualifiers: Complication of substance-induced condition: uncomplicated Qualified Code(s ): F10.230 - Alcohol dependence with withdrawal, uncomplicated (2) Cannabis abuse Status: Acute (3) Marijuana dependence Status: Acute (4) [place] (hard of hearing) Status: Chronic Qualifiers: Laterality: right (5) Herniated disc Status: Chronic (6) Nicotine dependence Status: Chronic Qualifiers: Nicotine product type: cigarettes Substance use status: in withdrawal Qualified Code(s): F17.213 - Nicotine dependence, cigarettes, with withdrawal (7) Rheumatoid arthritis Status: Chronic Qualifiers: Rheumatoid arthritis location: unspecified site (8) Sciatica Status: Chronic Qualifiers: Laterality: unspecified laterality Qualified Code(s): M54.30 - Sciatica, unspecified side - AMA Did Patient Leave Against Medical Advice: No
[2018-09-21] MEDS ORDERED: chlordiazePOXIDE HCL 10 MG CAPSULE PO ONE (05:00)
== END 2018-09-20 09:30 | disposition home or self-care (01) | DRG 775 ==
LOC: YASAS 16:42 → Y6N 22:38
PROVIDERS: ADMIT Surgery; ATTEND Surgery
PROC: HZ2ZZZZ Detoxification Services for Substance Abuse Treatment (ICD-10-PCS; principal; 2018-09-16)
DX: F10.230 Alcohol dependence with withdrawal, uncomplicated (principal); F12.20 Cannabis dependence, uncomplicated; F17.210 Nicotine dependence, cigarettes, uncomplicated; F33.9 Major depressive disorder, recurrent, unspecified; F19.282 Other psychoactive substance dependence with psychoactive substance-induced sleep disorder; M54.30 Sciatica, unspecified side; H91.91 Unspecified hearing loss, right ear; M06.9 Rheumatoid arthritis, unspecified; A53.0 Latent syphilis, unspecified as early or late; Z88.0 Allergy status to penicillin
CPT/HCPCS: 36415; 80053; 81003; 85027; 86480; 86593; 86780; 87389

== ENCOUNTER 2021-04-26 18:03 | Inpatient (IN) | payer OTHER ==
[2021-04-26 18:53] VITALS: BMI 22.4
[2021-04-26] MEDS ORDERED: ACETAMINOPHEN 325 MG TABLET (FP) PO PRN ×2 (20:30)
[2021-04-26] MEDS ORDERED: ONDANSETRON *ODT* 4 MG TABLET SL PRN (20:30)
[2021-04-26] MEDS ORDERED: MAG HYDROX/AL HYDROX/SIMETH 30 ML UNIT-DOSE CUP PO PRN (20:30)
[2021-04-26] MEDS ORDERED: MENTHOL/PHENOL 1 EACH UD MM PRN (20:30)
[2021-04-26] MEDS ORDERED: BISMUTH SUBSALICYLATE 524 MG/30 ML PO PRN (20:30)
[2021-04-26] MEDS ORDERED: MELATONIN 5 MG TABLETS PO PRN (20:30)
[2021-04-26] MEDS ORDERED: LOPERAMIDE HCL 2 MG CAPSULE PO PRN (20:30)
[2021-04-26] MEDS ORDERED: IBUPROFEN 400 MG TABLET (FP) PO PRN (20:30)
[2021-04-26] MEDS ORDERED: METHOCARBAMOL 500 MG TABLET PO PRN (20:30)
[2021-04-26] MEDS ORDERED: MAGNESIUM CITRATE 300 ML BOTTLE PO PRN (20:30)
[2021-04-26] MEDS ORDERED: MAGNESIUM HYDROX 2400MG/30ML ORAL SUSPENSION 30 ML CUP PO PRN (20:30)
[2021-04-27] MEDS ORDERED: diazePAM 5 MG TABLET ONE (00:06)
[2021-04-27] MEDS: THIAMINE HCL 100 MG TABLET (FP) PO SCH ×2 (00:09→22:18)
[2021-04-27] MEDS: diazePAM 5 MG TABLET PO SCH ×5 (00:09→22:18)
[2021-04-27] MEDS: hydrOXYzine PAMOATE 25 MG CAPSULE (FP) PO PRN ×3 (10:19→22:20)
[2021-04-27] MEDS: PRENATAL VITAMINS W/ FOLIC ACID TABLET (FP) PO SCH (10:19)
[2021-04-27] MEDS: NICOTINE 7 MG/24 HOURS TOPICAL PATCH TD SCH (10:20)
[2021-04-27 11:16] LABS: HEMATOCRIT 39.4 % (35.4-49); HEMOGLOBIN 13.3 GM/dL (11.7-16.9); MCH 32.6 pg (25.7-33.7); MCHC 33.8 g/dl (32.0-35.9); MEAN CELL VOLUME 96.6 fl (80-96); MEAN PLT VOLUME 8.3 fl (7.5-11.1); PLATELET COUNT 326 10^3/uL (134-434); RBC 4.08 M/mm3 (4.00-5.60); RDW 15.7 % (11.9-15.9); WHITE BLOOD COUNT 6.1 K/mm3 (4.0-10.0)
[2021-04-27 11:38] LABS: ALBUMIN 3.2 g/dl (3.4-5.0)
[2021-04-27 11:39] LABS: BLOOD UREA NITROGEN 8.9 mg/dL (7-18)
[2021-04-27 11:41] LABS: CREATININE 0.8 mg/dL (0.55-1.3)
[2021-04-27 11:43] LABS: BILIRUBIN,TOTAL 0.7 mg/dL (0.2-1); TOT PROT 6.6 g/dl (6.4-8.2)
[2021-04-27] MEDS ORDERED: FLU VACC QS2021-22(6MOS UP)/PF 60 MCG/0.5 ML SYRINGE IM ONE (12:00)
[2021-04-27] MEDS: diazePAM 5 MG TABLET PO PRN (14:47)
[2021-04-27] MEDS ORDERED: MIRTAZAPINE 15 MG TABLET (FP) PO SCH (22:00)
[2021-04-28] MEDS: diazePAM 5 MG TABLET PO SCH ×2 (05:51→14:42)
[2021-04-28] MEDS: NICOTINE 7 MG/24 HOURS TOPICAL PATCH TD SCH (10:39)
[2021-04-28] MEDS: diazePAM 5 MG TABLET PO PRN (10:39)
[2021-04-28] MEDS: PRENATAL VITAMINS W/ FOLIC ACID TABLET (FP) PO SCH (10:39)
[2021-04-28] MEDS: hydrOXYzine PAMOATE 25 MG CAPSULE (FP) PO PRN (10:40)
[2021-04-28 12:49] VITALS: BP 122/81; PULSE 104; TEMP 98.2
[2021-04-28 13:08] LABS: SARS-CoV-2 NAA Not Detected (Not Detected)
[2021-04-28] MEDS ORDERED: DOXYCYCLINE HYCLATE 100 MG TABLET PO SCH (18:00)
[2021-04-29] MEDS ORDERED: diazePAM 5 MG TABLET PO SCH (06:00)
[2021-04-30] MEDS ORDERED: diazePAM 5 MG TABLET PO ONE (06:00)
== END 2021-04-28 15:14 | disposition left against medical advice (07) | DRG 770 ==
LOC: YASAS 18:03 → Y3N 04-27 00:11
PROVIDERS: ADMIT Allergy & Immunology; ATTEND Allergy & Immunology
PROC: HZ2ZZZZ Detoxification Services for Substance Abuse Treatment (ICD-10-PCS; principal; 2021-04-27)
DX: F10.230 Alcohol dependence with withdrawal, uncomplicated (principal); F12.20 Cannabis dependence, uncomplicated; F17.210 Nicotine dependence, cigarettes, uncomplicated; F19.282 Other psychoactive substance dependence with psychoactive substance-induced sleep disorder; F19.280 Other psychoactive substance dependence with psychoactive substance-induced anxiety disorder; F19.24 Other psychoactive substance dependence with psychoactive substance-induced mood disorder; F41.9 Anxiety disorder, unspecified; F32.A Depression, unspecified; A53.0 Latent syphilis, unspecified as early or late; Z62.810 Personal history of physical and sexual abuse in childhood; Z86.19 Personal history of other infectious and parasitic diseases; Z88.0 Allergy status to penicillin; Z88.5 Allergy status to narcotic agent
CPT/HCPCS: 36415; 80053; 85027; 86593; 86780; C9803; U0003; U0005